=== PATIENT | male | born 1985 | race Caucasian/White ===

== ENCOUNTER 2021-03-22 10:49 | Emergency (ER) | payer MEDICAID ==
[2021-03-22] MEDS ORDERED: HYDROmorphone 1 MG/ML Syringe IM ONE (11:38)
--- NOTE | 2021-03-22 11:41 | EDM.PDOC ---
ED HPI GENERAL MEDICAL PROBLEM - General Chief Complaint: Lower Extremity Injury/Pain Stated Complaint: L ANKLE INJURY Time Seen by Provider: 03/22/21 11:24 Source of Information: Reports: Patient, RN Notes Reviewed History Limitations: Reports: No Limitations - History of Present Illness INITIAL COMMENTS - FREE TEXT/NARRATIVE: Patient is a 35-year-old male who presents to the ER for the evaluation of the left ankle injury. Patient notes that around midnight last night, he stumbled down around 4 stairs. States he is having pain into his left ankle, with a moderate amount of swelling noted. He has not been able to bear much weight on the extremity due to the pain. He is also not been icing this, or using any sort of Tylenol ibuprofen for pain management at home. Patient denies any prior injuries to this ankle and would rate his pain at a 9 out of 10. Patient denies any other sick-like symptoms, fever/chills, cough/shortness of breath, nausea/vomiting/diarrhea. Patient denies any other past medical history. He is able to wiggle his toes in all range of motion, with little difficulty, strength is slightly decreased, due to the pain. Left Ankle Pain Score (Numeric/FACES): 8 - Related Data Allergies Allergy/AdvReac Type Severity Reaction Status Date / Time No Known Allergies Allergy Verified 03/22/21 11:37 Home Meds: Home Meds . [No Known Home Meds] 03/22/21 [History] Past Medical History Neurological History: Reports: Concussion Social & Family History - Tobacco Use Years of Tobacco use: 10 Packs/Tins Daily: 0.5 - Caffeine Use Caffeine Use: Reports: Coffee - Alcohol Use Days Per Week of Alcohol Use: 2 Number of Drinks Per Day: 5 Total Drinks Per Week: 10 - Recreational Drug Use Recreational Drug Use: No Review of Systems - Review of Systems Review Of Systems: Comprehensive ROS is negative, except as noted in HPI. ED EXAM, GENERAL - Physical Exam Exam: See Below Exam Limited By: No Limitations General Appearance: Alert, WD/WN, No Apparent Distress Respiratory/Chest: No Respiratory Distress, Lungs Clear, Normal Breath Sounds, No Accessory Muscle Use, Chest Non-Tender Cardiovascular: Normal Peripheral Pulses, Regular Rate, Rhythm, No Edema Peripheral Pulses: 2+: Dorsalis Pedis (L), Dorsalis Pedis (R) Extremities: Normal Capillary Refill, Pedal Edema (2+ edema to left ankle/foot), Limited Range of Motion (left ankle / foot) Neurological: Alert, Oriented, Normal Cognition, No Motor/Sensory Deficits Psychiatric: Normal Affect, Normal Mood Skin Exam: Warm, Dry, Intact, Normal Color, No Rash Course - Vital Signs Last Recorded V/S: Last Vital Signs Temp 97.9 F 03/22/21 11:23 Pulse 96 03/22/21 11:23 Resp 16 03/22/21 11:23 BP 137/85 03/22/21 11:23 Pulse Ox 94 L 03/22/21 11:23 - Orders/Labs/Meds Orders: Active Orders 24 hr Category Date Time Status Ankle Min 3V Lt [CR] Stat Exams 03/22/21 11:31 Ordered DME for Discharge [COMM] Routine Oth 03/22/21 11:57 Ordered Meds: Medications Discontinued Medications Generic Name Dose Route Start Last Admin Trade Name Freq PRN Reason Stop Dose Admin Hydromorphone HCl 1 mg 03/22/21 11:38 03/22/21 11:42 Hydromorphone 1 Mg/Ml Syringe IM 03/22/21 11:39 1 mg ONETIME ONE Administration - Re-Assessments/Exams Free Text/Narrative Re-Assessment/Exam: 03/22/21 11:40 Patient presents in the ER for his left ankle injury. We will go ahead and get x-rays, give him 1 mg IM Dilaudid for pain management. 03/22/21 11:57 Patient's ankle x-rays have returned, there is a distal fibular fracture, slightly displaced, which also causes some disruption of the mortise joint. Films have been reviewed by myself and Dr. Summers for today's purposes we will get him in a walking boot and provided with crutches and keep him nonweightbearing. Patient will be provided with the walking boot to or stabilize the injury and prevent further injury. Departure - Departure Time of Disposition: 11:58 Disposition: Home, Self-Care 01 Condition: Good Clinical Impression: Displaced fracture of distal end of fibula Closed left fibular fracture Qualifiers: Encounter type: initial encounter Fibula location: distal Fracture morphology: other fracture Qualified Code(s): S82.832A - Other fracture of upper and lower end of left fibula, initial encounter for closed fracture - Discharge Information *PRESCRIPTION DRUG MONITORING PROGRAM REVIEWED*: No *COPY OF PRESCRIPTION DRUG MONITORING REPORT IN PATIENT RATNA: No Instructions: Tibial and Fibular Fractures Referrals: PCP,None [Primary Care Provider] - Forms: ED Department Discharge Additional Instructions: You have been evaluated in the ED for your left ankle injury. Your x-ray demonstrated a slightly displaced distal fibular fracture, that will likely need surgical management. You have been provided with a walking boot to prevent further injury and/or stabilize the injury you received today. You have been provided with crutches as well to keep you nonweightbearing. You are not to place any weight on the ankle whatsoever to make sure that you do not injure the ankle further. Please use ice as tolerated to the affected area. You may elevate the affected area to provide further relief from swelling. You may take Tylenol 500 mg or ibuprofen 600mg q6 hrs for pain relief. Please do so until you have a tolerable level of pain with activity. Do not exceed 4000mg Tylenol, Do not exceed 3200mg ibuprofen in a 24 hour time period. You were given a prescription for a strong pain medication, hydrocodone/acetaminophen 5/325, please take 1 tab every 6 hours as needed for pain not relieved by Tylenol or ibuprofen alone. Please note this does contain Tylenol in it, so do not take more than 4000 mg in a 24-hour time span. These medications can be addictive, so please take as few as possible to achieve adequate pain control. These meds can also be quite constipating, recommend that you increase your oral fluid intake and take a stool softener like MiraLAX while taking these medications. Please call Ortho for follow-up and further evaluation Dr. Nowak is our orthopedic surgeon, his office number is [phone]. Please call and set up an appointment as soon as possible for further management. Please return to ED if your symptoms should change or worsen. Sepsis Event Note (ED) - Evaluation Sepsis Screening Result: No Definite Risk - Focused Exam Vital Signs: Vital Signs Temp Pulse Resp BP Pulse Ox 03/22/21 11:23 97.9 F 96 16 137/85 94 L - My Orders Last 24 Hours: My Active Orders 03/22/21 11:31 Ankle Min 3V Lt [CR] Stat 03/22/21 11:57 DME for Discharge [COMM] Routine - Assessment/Plan Last 24 Hours: My Active Orders 03/22/21 11:31 Ankle Min 3V Lt [CR] Stat 03/22/21 11:57 DME for Discharge [COMM] Routine
[2021-03-22] MEDS ORDERED: Ketorolac 60 MG/2 ML SDV IM ONE (12:10)
[2021-03-22] MEDS ORDERED: HYDROmorphone 0.5 MG/0.5 ML Syringe IM ONE (12:10)
--- NOTE | 2021-03-22 18:55 | CR ---
Left ankle: 4 views of the left ankle were obtained. Comparison: No prior ankle studies available. Mildly displaced lateral malleolus fracture is seen. Displacement on the lateral view measures about 7-8 mm. Ankle mortise is slightly asymmetric. Small calcification is seen off the medial talus which is well-corticated and felt to represent old injury. Diffuse soft tissue swelling is noted. Impression: 1. Mildly displaced lateral malleolus fracture which causes unstable ankle mortise. 2. Other findings believed to be incidental as noted above. Diagnostic code #3
== END 2021-03-22 12:46 | disposition home or self-care (01) ==
LOC: JD.ED 10:49
DX: S82.832A Other fracture of upper and lower end of left fibula, initial encounter for closed fracture (principal); Z72.0 Tobacco use; W10.9XXA Fall (on) (from) unspecified stairs and steps, initial encounter
CPT/HCPCS: 73610; 96372; 99283; J1170; J1885

== ENCOUNTER 2021-03-24 11:10 | Emergency (ER) | payer MEDICAID ==
--- NOTE | 2021-03-24 12:50 | EDM.PDOC ---
ED HPI GENERAL MEDICAL PROBLEM - General Chief Complaint: Lower Extremity Injury/Pain Stated Complaint: SWOLLEN LT ANKLE Time Seen by Provider: 03/24/21 12:29 Source of Information: Reports: Patient History Limitations: Reports: No Limitations - History of Present Illness INITIAL COMMENTS - FREE TEXT/NARRATIVE: Presents with increasing left ankle pain. Had injury where he twisted his left ankle and sustained a Wilson C fracture of the left distal fibula. He has been in a cam walker boot crutches nonweightbearing. He has been taking hydrocodone without a lot of relief and its making him more nauseated. No chest pain or shortness of breath gets nauseated from the pain but otherwise no vomiting. No fevers no abdominal pain no knee or hip pain. Treatments LANGUAGE SPECIALIST: Reports: Other (see below) Other Treatments LANGUAGE SPECIALIST: ER on Wednesday Left Ankle Pain Score (Numeric/FACES): 9 - Related Data Allergies Allergy/AdvReac Type Severity Reaction Status Date / Time No Known Allergies Allergy Verified 03/24/21 12:22 Home Meds: Home Meds Hydrocodone/Acetaminophen [Hydrocodone-Acetamin 5-325 mg] 1 each PO Q6H PRN #20 tablet 03/22/21 [Rx] Past Medical History Neurological History: Reports: Concussion - Past Surgical History Musculoskeletal Surgical History: Reports: Other (See Below) Other Musculoskeletal Surgeries/Procedures:: displaced fibular fracture Social & Family History - Tobacco Use Tobacco Use Status *Q: Current Every Day Tobacco User Years of Tobacco use: 7 Packs/Tins Daily: 0.4 - Caffeine Use Caffeine Use: Reports: None - Recreational Drug Use Recreational Drug Use: No Review of Systems - Review of Systems Review Of Systems: See Below Constitutional: Denies: Chills, Diaphoresis, Fever Respiratory: Reports: No Symptoms Cardiovascular: Reports: No Symptoms GI/Abdominal: Reports: Nausea Musculoskeletal: Reports: Leg Pain, Foot Pain, Joint Pain, Joint Swelling, Muscle Pain Skin: Reports: No Symptoms Neurological: Denies: Numbness, Paresthesia, Tingling Psychiatric: Reports: No Symptoms ED EXAM, GENERAL - Physical Exam Exam: See Below Exam Limited By: No Limitations General Appearance: Alert, WD/WN Peripheral Pulses: 2+: Dorsalis Pedis (L) Extremities: Normal Capillary Refill, Pedal Edema, Joint Swelling, Limited Range of Motion, Other (Patient in the cam Ortho boot, does have some swelling to the ankle distally, sensation is intact, cap refill is less than 2 seconds sensation is grossly intact no proximal fibular pain no obvious calf tenderness.). No: Buck's Sign, Increased Warmth Course - Vital Signs Text/Narrative:: Patient with recent fracture, has an appointment to follow-up with the or thopedic/bottle tester on Wednesday or Wednesday. Will give him a shot of Dilaudid for more rapid control of his pain for now, we will write him for oxycodone 5 mg 1-2 every 4-6 hours as needed rest ice elevate crutches nonweightbearing return precautions given Last Recorded V/S: Last Vital Signs Temp 99.2 F 03/24/21 12:23 Pulse 88 03/24/21 12:23 Resp 16 03/24/21 12:23 BP 141/81 H 03/24/21 12:23 Pulse Ox 98 03/24/21 12:23 Departure - Departure Time of Disposition: 13:00 Disposition: Home, Self-Care 01 Condition: Good Clinical Impression: Fracture of fibula - Discharge Information Instructions: Nondisplaced Fibular Ankle Fracture Treated With Immobilization, Adult Referrals: PCP,None [Primary Care Provider] - Additional Instructions: Follow-up with podiatry/orthopedist as scheduled this week. Rest ice elevate crutches nonweightbearing continue to wear the Ortho cam splint. Stop hydrocodone, oxycodone 5 mg 1 or 2 every 4-6 hours as prescribed for pain May use Advil for less severe pain. Return sooner if any increasing pain numbness tingling bluish discoloration of the fingertips shortness of breath or chest pain. Sepsis Event Note (ED) - Evaluation Sepsis Screening Result: No Definite Risk - Focused Exam Vital Signs: Vital Signs Temp Pulse Resp BP Pulse Ox 03/24/21 12:23 99.2 F 88 16 141/81 H 98
[2021-03-24] MEDS ORDERED: HYDROmorphone 1 MG/ML Syringe IM ONE (12:51)
== END 2021-03-24 13:15 | disposition home or self-care (01) ==
LOC: JD.ED 11:10
DX: S82.832A Other fracture of upper and lower end of left fibula, initial encounter for closed fracture (principal); Z72.0 Tobacco use; X50.1XXA Overexertion from prolonged static or awkward postures, initial encounter
CPT/HCPCS: 96372; 99283; J1170

== ENCOUNTER 2021-03-27 08:55 | Day surgery (SDC) | payer MEDICAID ==
[~2021-03-27 08:55] MED LIST: Lactated Ringers 1,000 ML IV SCH; Lidocaine 1%/Sod Bicarbonate in NS 8.4% 1 ML Syringe IDERM PRN; Midazolam 1 MG/ML 2 ML SDV ONE; Propofol 200 MG/20 ML SDV ONE; Sodium Chloride 0.9% 10 ML Syringe FLUSH PRN; fentaNYL 250 MCG/5 ML SDV ONE
[2021-03-27] MEDS ORDERED: Ondansetron 4 MG/2 ML SDV ONE (09:15)
[2021-03-27] MEDS ORDERED: Dexamethasone 4 MG/ML 5 ML MDV ONE (09:15)
[2021-03-27] MEDS ORDERED: Lidocaine 1% 4 ML ONE (09:16)
[2021-03-27] MEDS ORDERED: Ketamine 500 mg/10 ML MDV ONE ×2 (09:24→11:31)
[2021-03-27] MEDS ORDERED: Lactated Ringers 0 ML ONE (09:24)
[2021-03-27] MEDS ORDERED: Bupivacaine 0.25% 10 ML SDV ONE ×2 (09:31→10:51)
[2021-03-27] MEDS ORDERED: Acetaminophen 325 MG Tab PO ONE (10:15)
[2021-03-27] MEDS ORDERED: oxyCODONE ER 10 MG TAB.ER PO ONE (10:16)
[2021-03-27] MEDS ORDERED: Pregabalin 25 MG Cap PO ONE (10:16)
[2021-03-27] MEDS ORDERED: ceFAZolin 1 GM Vial ONE (10:20)
--- NOTE | 2021-03-27 10:25 | PCM.PREANE ---
Preanesthetic Assessment - Procedure Proposed Procedure: Left Ankle ORIF lateral malleolus with syndesmosis. - Anesthesia/Transfusion/Family Hx Anesthesia History: Prior Anesthesia Without Reaction Family History of Anesthesia Reaction: No Transfusion History: No Prior Transfusion(s) Intubation History: Unknown - Review of Systems General: No Symptoms Pulmonary: No Symptoms (Smoker: 1/2 ppd times 15 years. ETOH: occasionally Heroin: 3 years.) Cardiovascular: No Symptoms (Tricuspid valve repair: 2014 ), Edema (Effected left ankle.) Gastrointestinal: No Symptoms Neurological: No Symptoms (History of concussion in the past./childhood), Numbness (left foot) Other: Reports: None (Patient rates pain 8/10. Nurse notified anesthesia of potential track hernandez on bilateral arms./History of heroin use in the past.) - Physical Assessment NPO Status Date: 03/26/21 NPO Status Time: 20:00 Vital Signs: Last Vital Signs Temp 37.2 C 03/27/21 08:45 Pulse 85 03/27/21 08:45 Resp 16 03/27/21 08:45 BP 122/80 03/27/21 08:45 Pulse Ox 95 03/27/21 08:45 Height: 1.78 m Weight: 89 kg ASA Class: 2 Mental Status: Alert & Oriented x3 Airway Class: Mallampati = 2 Dentition: Reports: Normal Dentition, Caries Thyro-Mental Finger Breadths: 3 Mouth Opening Finger Breadths: 3 ROM/Head Extension: Full Lungs: Clear to Auscultation, Normal Respiratory Effort Cardiovascular: Regular Rate, Regular Rhythm, No Murmurs - Imaging/EKG Impressions: EKG: - Allergies Allergies/Adverse Reactions: Allergies Allergy/AdvReac Type Severity Reaction Status Date / Time No Known Allergies Allergy Verified 03/26/21 14:20 - Anesthesia Plan Pre-Op Medication Ordered: Other ( ) - Acknowledgements Anesthesia Type Planned: General Anesthesia (Possible left popliteal block under US guidance for post operative pain control requested by Dr. Nowak: IF PROVIDER AVAILABLE TO PROVIDE SERVICE.) Pt an Appropriate Candidate for the Planned Anesthesia: Yes Alternatives and Risks of Anesthesia Discussed w Pt/Guardian: Yes Pt/Guardian Understands and Agrees with Anesthesia Plan: Yes PreAnesthesia Questionnaire HEENT History: Reports: None Cardiovascular History: Reports: None Respiratory History: Reports: None Gastrointestinal History: Reports: None Genitourinary History: Reports: None TORCH SOLDERER History: Reports: None Musculoskeletal History: Reports: None Neurological History: Reports: Concussion Psychiatric History: Endocrine/Metabolic History: Reports: Diabetes, Gestational Hematologic History: Reports: None Immunologic History: Reports: None Oncologic (Cancer) History: Reports: None Dermatologic History: Reports: None - Past Surgical History Head Surgeries/Procedures: Reports: None HEENT Surgical History: Reports: None Cardiovascular Surgical History: Reports: Other (See Below) Other Cardiovascular Surgeries/Procedures: tricuspid valve repair in 2014 Respiratory Surgical History: Reports: None GI Surgical History: Reports: None Female Surgical History: Reports: None Male Surgical History: Reports: None Endocrine Surgical History: Reports: None Neurological Surgical History: Reports: Laminectomy Musculoskeletal Surgical History: Reports: Other (See Below) Other Musculoskeletal Surgeries/Procedures:: displaced fibular fracture Oncologic Surgical History: Reports: None - SUBSTANCE USE Tobacco Use Status *Q: Current Every Day Tobacco User Recreational Drug Use History: No - HOME MEDS Home Medications: Home Meds Aspirin [Aspirin EC] 325 mg PO BID #84 tab 03/27/21 [Rx] Aspirin [Aspirin EC] 325 mg PO BID #84 tab 03/27/21 [Rx] oxyCODONE 5 - 10 mg PO Q4H PRN #20 tab 03/27/21 [Rx] oxyCODONE 5 mg PO ASDIRECTED PRN 03/27/21 [History] - CURRENT (IN HOUSE) MEDS Current Meds: Current Medications Acetaminophen (Acetaminophen 325 Mg Tab) 975 mg PO NOW ONE Stop: 03/27/21 10:16 Lactated Ringer's (Ringers, Lactated) 1,000 mls @ 125 mls/hr IV ASDIRECTED FELIPA Stop: 03/27/21 23:00 Lidocaine/Sodium Bicarbonate (Lidocaine 1%/Sod Bicarbonate In Ns 8.4% 1 Ml Syringe) 0.25 ml IDERM ONETIME PRN PRN Reason: Prior to IV Start Stop: 03/27/21 18:00 Oxycodone HCl (Oxycodone Er 10 Mg Tab.Er) 10 mg PO ONETIME ONE Stop: 03/27/21 10:17 Pregabalin (Pregabalin 75 Mg Cap) 50 mg PO ONETIME ONE Stop: 03/27/21 10:17 Sodium Chloride (Sodium Chloride 0.9% 10 Ml Syringe) 10 ml FLUSH ASDIRECTED PRN PRN Reason: Keep Vein Open Stop: 03/27/21 18:00 Discontinued Medications Bupivacaine HCl (Bupivacaine 0.25% 10 Ml Sdv) Confirm Administered Dose 30 ml .ROUTE .STK-MED ONE Stop: 03/27/21 09:32 Dexamethasone (Dexamethasone 4 Mg/Ml 5 Ml Mdv) Confirm Administered Dose 20 mg .ROUTE .STK-MED ONE Stop: 03/27/21 09:16 Fentanyl (Fentanyl 250 Mcg/5 Ml Sdv) Confirm Administered Dose 250 mcg .ROUTE .STK-MED ONE Stop: 03/27/21 08:53 Lidocaine HCl (Xylocaine-Mpf 1%) Confirm Administered Dose 4 mls @ as directed .ROUTE .STK-MED ONE Stop: 03/27/21 09:17 Lactated Ringer's (Ringers, Lactated) Confirm Administered Dose 1,000 mls @ as directed .ROUTE .STGesplan-MED ONE Stop: 03/27/21 09:25 Ketamine HCl (Ketamine 500 Mg/10 Ml Mdv) Confirm Administered Dose 500 mg .ROUTE .STK-MED ONE Stop: 03/27/21 09:25 Midazolam HCl (Midazolam 1 Mg/Ml 2 Ml Sdv) Confirm Administered Dose 2 mg .ROUTE .STK-MED ONE Stop: 03/27/21 08:53 Ondansetron HCl (Ondansetron 4 Mg/2 Ml Sdv) Confirm Administered Dose 4 mg .ROUTE .STK-MED ONE Stop: 03/27/21 09:16 Propofol (Propofol 200 Mg/20 Ml Sdv) Confirm Administered Dose 400 mg .ROUTE .STK-MED ONE Stop: 03/27/21 08:53
[2021-03-27] MEDS ORDERED: Lidocaine 1% 30 ML SDV ONE (10:52)
[2021-03-27] MEDS ORDERED: HYDROmorphone 0.5 MG/0.5 ML Syringe ONE ×6 (11:31→12:59)
--- NOTE | 2021-03-27 11:36 | PCM.SN.2 ---
- Free Text/Narrative Note: Anesthesia Note: Time out: 1100 Start: 1100 Stop: 1106 Procedure: Left Ankle Block for post operative pain control requested by Dr. Nowak. Chart reviewed, allergies noted, risk/benefits discussed with patient, and consent obtained. Patient placed on O2 at 2lpm nasal cannula. Monitors/alarms on, and patient positioned supine for ankle block placement. IV sedation given with versed 2mg, and fentanyl 100mcg prior to procedure. Total of 10mls: 50/50 mixture of (1%lidocaine/0.25% marcaine) Deep peroneal nerve, superficial peroneal, saphenous nerve, posterior tibial, and sural nerve all blocked via field block with negative aspiration noted with each injection. Patient tolerated procedure well. Patient stated prior to going back to the OR that ankle pain was improving. Initial pain = 8/10 Thank you! Layla Abreu CRNA
[2021-03-27] MEDS ORDERED: Ketorolac 30 MG/ML SDV ONE (12:01)
--- NOTE | 2021-03-27 12:10 | PCM.EKG ---
#1 Interpretation EKG Date: 03/27/21 Time: 10:53 Rhythm: NSR Rate (Beats/Min): 73 [place]: Normal P-Wave: Present ST-T: Other (Diffuse early repolarization pattern) QT: Prolonged (QTC is minimally prolonged) EKG Interpretation Comments: Abnormal ECG
--- NOTE | 2021-03-27 13:05 | CR ---
Left ankle: Multiple fluoroscopic spot views were obtained of the left ankle. Study was obtained during operative fixation. Comparison: Prior left ankle study of 03/22/21. Findings: Study shows placement of plate and screws within the distal fibula as well as an 2 screws affixing the distal fibula to the tibia. Fluoroscopy time is given as 36.1 seconds. Impression: 1. Reduction and fixation of previous fibular fracture. Diagnostic code #2
[2021-03-27] MEDS ORDERED: Ondansetron 4 MG/2 ML SDV IVPUSH PRN (13:12)
[2021-03-27] MEDS ORDERED: fentaNYL 100 MCG/2 ML SDV IVPUSH PRN (13:12)
--- NOTE | 2021-03-27 13:13 | PCM.POSTAN ---
POST ANESTHESIA ASSESSMENT - MENTAL STATUS Mental Status: Alert - VITAL SIGNS Vital Signs: Last Vital Signs Temp 36.3 C 03/27/21 13:01 Pulse 98 03/27/21 13:01 Resp 16 03/27/21 13:01 BP 129/109 H 03/27/21 13:01 Pulse Ox 95 03/27/21 13:01 - RESPIRATORY Respiratory Status: Respiratory Rate WNL, Airway Patent, O2 Saturation Stable, Supplemental Oxygen - CARDIOVASCULAR CV Status: Pulse Rate WNL, Blood Pressure Stable - GASTROINTESTINAL GI Status: No Symptoms - PAIN Pain Score: 5 (being treated by RN ) - POST OP HYDRATION Hydration Status: Adequate & Stable
[2021-03-27] MEDS ORDERED: oxyCODONE 5 MG Tab PO PRN (13:16)
[2021-03-27] MEDS: HYDROmorphone 0.5 MG/0.5 ML Syringe IVPUSH PRN ×2 (13:20→13:37)
--- NOTE | 2021-03-27 14:05 | PCM48HPAN ---
Post Anesthesia Note - EVALUATION WITHIN 48HRS OF ANESTHETIC Vital Signs in Normal Range: Yes Patient Participated in Evaluation: Yes Respiratory Function Stable: Yes Airway Patent: Yes Cardiovascular Function Stable: Yes Hydration Status Stable: Yes Pain Control Satisfactory: Yes Nausea and Vomiting Control Satisfactory: Yes Mental Status Recovered: Yes Vital Signs: Last Vital Signs Temp 36.9 C 03/27/21 14:00 Pulse 96 03/27/21 14:00 Resp 19 03/27/21 14:00 BP 138/96 H 03/27/21 14:00 Pulse Ox 93 L 03/27/21 14:00
--- NOTE | 2021-04-04 07:39 | PCM.OPNOTE ---
- General Post-Op/Procedure Note Date of Surgery/Procedure: 03/27/21 Operative Procedure(s): open reduction internal fixation left ankle lateral malleolus and syndesmosis with deltoid ligament primary repair Pre Op Diagnosis: left ankle bimalleolar equivalent fracture Post-Op Diagnosis: Same Anesthesia Technique: General LMA, Regional Block Primary Surgeon: Lamont Nowak Anesthesia Provider: Jaclyn Roger Quality Assurance Supervisor: Nazanin Seo EBL in mLs: 10 Complications: None Condition: Good
--- NOTE | 2021-04-07 07:43 | OR ---
DATE OF OPERATION: 03/27/2021 SURGEON: Lamont Nowak MD OPERATION PERFORMED: Open reduction and internal fixation of left ankle lateral malleolus syndesmosis with deltoid ligament primary repair. PREOPERATIVE DIAGNOSIS: Left ankle bimalleolar equivalent fracture. POSTOPERATIVE DIAGNOSIS: Left ankle bimalleolar equivalent fracture. ANESTHESIA: General LMA with regional block. ANESTHESIA PROVIDER: Jaclyn Roger. TUMBLER PLATER: Nazanin Seo PA-C ESTIMATED BLOOD LOSS: 10 mL. COMPLICATIONS: None. CONDITION: Stable. DESCRIPTION OF PROCEDURE: The patient was identified in the preoperative holding area. Proper site was marked and identified by the surgeon. The patient was taken back to the operating theater where after adequate anesthesia, the patient had a nonsterile tourniquet applied to the left lower extremity. Left lower extremity was then sterilely prepped and draped in the usual sterile fashion. OR time-out was performed. The patient received 2 g of IV Ancef. At this time, left lower extremity was exsanguinated. Tourniquet was insufflated to 250 mmHg. Standard lateral incision was made. This was taken down to the fibula where the fibular fracture was identified. Curette and rongeur were used to remove fracture hematoma and soft tissue. At this time, mpeut-[id number] reduction clamp was used for an intact anatomic reduction, and a 3.5 lag screw was then placed in lag by technique. It was found to have adequate fixation. At this time, a one-third semi-tubular plate was placed laterally and was found to have good positioning. At this time, cortical screws were placed both proximally and distally to the fracture site to fix it. The patient then had 2 syndesmotic screws placed across in tricortical fashion. At this time though, the medial clear space was still widened. The patient had increased talar tilt indicative of probable deltoid ligament entrapped in the medial clear space. At this time, a medial incision was made. This was taken down to the deltoid ligament. It was found to be entrapped into the medial clear space with complete tearing. At this time, it was removed from the medial clear space, and I was able to do a primary repair using 0 Vicryl to repair the deltoid ligament from its midsubstance tear. Again, the syndesmotic screws were placed across, compression was applied across the syndesmosis with a [id number] reduction clamp, and the screws were tightened. It was found to have anatomic reduction in the medial clear space, and there was no increased talar tilt on stress view. At this time, adequate saline was irrigated through all wounds, 2-0 Vicryl was used subcutaneously. [place] were used for closure of the skin. The patient was placed in a sterile soft dressing and a posterior slab splint and sent to the PACU in stable condition. DARLENE /[id number]
== END 2021-03-27 15:05 | disposition home or self-care (01) ==
LOC: JD.SDS 08:55
PROVIDERS: ATTEND Orthopaedic Surgery
DX: S82.842A Displaced bimalleolar fracture of left lower leg, initial encounter for closed fracture (principal); S93.422A Sprain of deltoid ligament of left ankle, initial encounter; F17.210 Nicotine dependence, cigarettes, uncomplicated; Z79.82 Long term (current) use of aspirin; X50.1XXA Overexertion from prolonged static or awkward postures, initial encounter
CPT/HCPCS: 27814; 27829; 76000; 93005; A9270; C1713; C1776; J0690; J1100; J1170; J1885; J2250; J2405; J2704; J3010; J3490; J7120; 01480; 64450

== ENCOUNTER 2021-03-30 15:38 | Emergency (ER) | payer MEDICAID ==
[2021-03-30] MEDS ORDERED: Promethazine 25 MG/ML SDV IM ONE (15:58)
[2021-03-30] MEDS ORDERED: HYDROmorphone 1 MG/ML Syringe IM ONE (15:58)
--- NOTE | 2021-03-30 15:58 | EDM.PDOC ---
ED HPI GENERAL MEDICAL PROBLEM - General Chief Complaint: Lower Extremity Injury/Pain Stated Complaint: LT ANKLE PAIN/POST SURGERY X3 Time Seen by Provider: 03/30/21 15:51 Source of Information: Reports: Patient History Limitations: Reports: No Limitations - History of Present Illness INITIAL COMMENTS - FREE TEXT/NARRATIVE: 35-year-old male presents to the ED primarily for pain management. He is 3 days postop repair of the lateral and medial left ankle. He suffered initial injury on March 22 with a defined distal lateral malleolus fracture and slight widening of the medial joint on the mortise view. Surgery was done 3 days ago and in fact he did require both sides of the ankle to be repaired. He is immobilized in a posterior Ortho-Glass splint. He used up his 20 tablets of Percocet 5 325 mg tablets over the last 3 days. He states he has constant throbbing pain in the ankle more so on the medial aspect and the outside aspect. Patient advised at length that he must elevate the foot above the level of his heart as much as possible for the next several days until swelling goes down. Onset Date: 03/22/21 (Initial injury with fracture of the lateral malleolus distally occurred March 22. Surgery was performed March 27) Duration: Day(s):, Constant Location: Reports: Lower Extremity, Left (Left bilateral ankle pain medial) Quality: Reports: Ache ( worse than lateral pain.), Throbbing, Other (Pulsating) Severity: Moderate (8 out of 10) Improves with: Reports: None Worsens with: Reports: None Context: Reports: Trauma, Other (Postoperative pain after repair of lateral distal malleolus and surgical repair of the deltoid ligament or medial ligament of the ankle as well with pins.). 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: Other (see below) (Percocet 5/325 mg strength.) Left Ankle Pain Score (Numeric/FACES): 7 - Related Data Allergies Allergy/AdvReac Type Severity Reaction Status Date / Time No Known Allergies Allergy Verified 03/30/21 15:47 Home Meds: Home Meds Aspirin [Aspirin EC] 325 mg PO BID #84 tab 03/27/21 [Rx] oxyCODONE HCl [Roxicodone] 15 mg PO Q6H PRN #18 tablet 03/30/21 [Rx] Past Medical History HEENT History: Reports: None Cardiovascular History: Reports: None Respiratory History: Reports: None Gastrointestinal History: Reports: None Genitourinary History: Reports: None 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 Musculoskeletal History: Reports: None Neurological History: Reports: Concussion Endocrine/Metabolic History: Reports: Diabetes, Gestational Hematologic History: Reports: None Immunologic History: Reports: None Oncologic (Cancer) History: Reports: None Dermatologic History: Reports: None - Past Surgical History Cardiovascular Surgical History: Reports: Other (See Below) Other Cardiovascular Surgeries/Procedures: tricuspid valve repair in 2014 Neurological Surgical History: Reports: Laminectomy Musculoskeletal Surgical History: Reports: Other (See Below) Other Musculoskeletal Surgeries/Procedures:: displaced left fibular fracture Social & Family History - Tobacco Use Tobacco Use Status *Q: Current Every Day Tobacco User Years of Tobacco use: 10 Packs/Tins Daily: 0.5 - Caffeine Use Caffeine Use: Reports: None - Recreational Drug Use Recreational Drug Use: No - Living Situation & Occupation Living situation: Reports: Single Occupation: Unemployed Review of Systems - Review of Systems Review Of Systems: See Below Constitutional: Reports: Other (Patient states he is tired from not being able to sleep adequately) Eyes: Reports: No Symptoms Ears: Reports: No Symptoms Nose: Reports: No Symptoms Mouth/Throat: Reports: No Symptoms Respiratory: Reports: No Symptoms Cardiovascular: Reports: No Symptoms GI/Abdominal: Reports: No Symptoms Genitourinary: Reports: No Symptoms Musculoskeletal: Reports: Back Pain, Joint Pain (Current pain is in his left ankle.) Skin: Reports: No Symptoms Neurological: Reports: No Symptoms Psychiatric: Reports: No Symptoms ED EXAM, GENERAL - Physical Exam Exam: See Below Exam Limited By: No Limitations General Appearance: Alert, WD/WN, No Apparent Distress, Other (Temperature is 36.2. Heart rate at the bedside was 120/min. Respiratory to 16 with O2 sats of 97% room air. BP mildly elevated 145/96. This is presumably due to pain response.) Eye Exam: Bilateral Eye: Normal Inspection (No blepharal pallor or scleral icterus.) Respiratory/Chest: No Respiratory Distress, Lungs Clear, Normal Breath Sounds, No Accessory Muscle Use Cardiovascular: Normal Peripheral Pulses, Regular Rate, Rhythm, No Murmur, No Rub, Tachycardia (Mild tachycardia at the bedside.) Peripheral Pulses: 3+: Carotid (L), Carotid (R) Extremities: Other (Left lower extremity is immobilized in a posterior Ortho- Glass splint and Graeme wrap in place. Toes are pink and good capillary return appreciated to the great toenail.) Neurological: Alert, Oriented, CN II-XII Intact, Normal Cognition Psychiatric: Normal Affect, Normal Mood Skin Exam: Warm, Dry, Intact, Normal Color Course - Vital Signs Last Recorded V/S: Last Vital Signs Temp 36.2 C 03/30/21 15:44 Pulse 119 H 03/30/21 15:44 Resp 16 03/30/21 15:44 BP 145/96 H 03/30/21 15:44 Pulse Ox 97 03/30/21 15:44 - Orders/Labs/Meds Meds: Medications Discontinued Medications Generic Name Dose Route Start Last Admin Trade Name Parvezq PRN Reason Stop Dose Admin Hydromorphone HCl 1 mg 03/30/21 15:58 03/30/21 16:04 Hydromorphone 1 Mg/Ml Syringe IM 03/30/21 15:59 1 mg ONETIME ONE Administration Promethazine HCl 25 mg 03/30/21 15:58 03/30/21 16:03 Promethazine 25 Mg/Ml Sdv IM 03/30/21 15:59 25 mg ONETIME ONE Administration - Radiology Interpretation Free Text/Narrative:: 35-year-old male presents to the ED for evaluation of left ankle pain. Patient suffered initial fracture of the distal lateral fibula on March 22. There was mild widening of the mortise view medially suspicious for deltoid ligament rupture at that time. Patient underwent surgery by Dr. Nowak orthopedic surgeon on March 27 with repair of both the lateral and medial aspect of the ankle. Patient states he is used up all the 20 oxycodone tablets that he had for pain relief. Currently rates the pain as a 7 out of 10 in his left ankle more so medially than laterally. Instructed that he must keep it elevated ideally above the level of his heart on pillows while lying down on the couch. The drugstore is closed at this time. This is a holiday weekend. Therefore given IM injection of Dilaudid 1 mg and Phenergan 25 mg in the ED. Prescription written for Roxicodone tablets as he has problems tolerating acetaminophen. We use the 50 mg tablet every 6 hours as needed for pain relief. 16 tablets provided. Follow-up with Dr. Nowak as planned. After the next 3 days the pain should imp rove in your ankle to the point that you can tolerate Motrin 600 mg every 6 hours to reduce pain and inflammation. Departure - Departure Time of Disposition: 16:23 Disposition: Home, Self-Care 01 Condition: Fair Clinical Impression: Postoperative pain of extremity - Discharge Information *PRESCRIPTION DRUG MONITORING PROGRAM REVIEWED*: Not Applicable *COPY OF PRESCRIPTION DRUG MONITORING REPORT IN PATIENT RATNA: Not Applicable Prescriptions: oxyCODONE HCl [Roxicodone] 15 mg PO Q6H PRN #18 tablet PRN Reason: post op Lt ankle surgery Referrals: Lamont Nowak MD [Primary Care Provider] - Forms: ED Department Discharge Additional Instructions: Evaluation in the emergency room today in regards to severe pain left ankle at the site of surgical repair both outside her lateral and medial or inside ankle 3 days ago. Initial injury was a fracture to the distal lateral malleolus or fibula with widened ankle mortise suggesting deltoid ligament tear. This was confirmed at the time of surgery with repair of both sides of your ankle joint. You remain immobilized in a Ortho-Glass posterior splint. It is important to elevate your foot is much as possible ideally above the level of your heart if you are laying on the couch with a couple of pillows etc. Drugstores are closed at this time. You were therefore given an IM injection of Dilaudid with Phenergan in the emergency department for pain relief. You will be able to you purchase a few Percocet tablets from the [employer] machine to get you through the night. 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 It is the only drugs that will be open for those few hours. Sepsis Event Note (ED) - Evaluation Sepsis Screening Result: No Definite Risk - Focused Exam Vital Signs: Vital Signs Temp Pulse Resp BP Pulse Ox 03/30/21 15:44 36.2 C 119 H 16 145/96 H 97
== END 2021-03-30 16:30 | disposition home or self-care (01) ==
LOC: JD.ED 15:38
DX: G89.18 Other acute postprocedural pain (principal); M25.572 Pain in left ankle and joints of left foot
CPT/HCPCS: 96372; 99283; J1170; J2550

== ENCOUNTER 2021-04-19 11:34 | Emergency (ER) | payer MEDICAID ==
[2021-04-19] MEDS ORDERED: HYDROmorphone 1 MG/ML Syringe IM ONE (11:47)
--- NOTE | 2021-04-19 11:58 | EDM.PDOC ---
ED HPI GENERAL MEDICAL PROBLEM - General Chief Complaint: Lower Extremity Injury/Pain Stated Complaint: L FOOT PAIN Time Seen by Provider: 04/19/21 11:44 Source of Information: Reports: Patient, Old Records, RN Notes Reviewed History Limitations: Reports: No Limitations - History of Present Illness INITIAL COMMENTS - FREE TEXT/NARRATIVE: Patient is a 35-year-old male who presents to the ER for the evaluation of his left ankle injury. Patient has had recent surgery performed by Dr. Dacosta on his left ankle, and states that he has been staying nonweightbearing as he has been told to do however he was trying to go up some stairs, and then kind of tripped up the stairs 2 days ago, and then he kind of fell over his crutches as well. States he is having some pain in his left lateral ankle, he can move his foot with little difficulty, and has no numbness tingling distal to the injury. The incision sites appear to be healing well, there are no drainage or redness associated around the incision sites. Pulses are palpable. Patient denies any other sick-like symptoms, fever/chills, cough/shortness of breath, nausea/vomiting/diarrhea. Left Ankle Pain Score (Numeric/FACES): 5 - Related Data Allergies Allergy/AdvReac Type Severity Reaction Status Date / Time No Known Allergies Allergy Verified 04/19/21 11:44 Home Meds: Home Meds Cyclobenzaprine [Flexeril] 10 mg PO BID PRN 04/19/21 [History] oxyCODONE HCl [Oxycodone HCL] 1 tab PO Q6H PRN #20 tablet 04/19/21 [Rx] Past Medical History Neurological History: Reports: Concussion - Past Surgical History Cardiovascular Surgical History: Reports: Other (See Below) Other Cardiovascular Surgeries/Procedures: tricuspid valve repair in 2014 Neurological Surgical History: Reports: Laminectomy Musculoskeletal Surgical History: Reports: Other (See Below) Other Musculoskeletal Surgeries/Procedures:: displaced left fibular fracture, left ankle surgery 03/27/2021 Social & Family History - Tobacco Use Tobacco Use Status *Q: Current Every Day Tobacco User Years of Tobacco use: 5 Packs/Tins Daily: 0.1 - Caffeine Use Caffeine Use: Reports: None - Recreational Drug Use Recreational Drug Use: No - Living Situation & Occupation Living situation: Reports: Single Occupation: Unemployed Review of Systems - Review of Systems Review Of Systems: Comprehensive ROS is negative, except as noted in HPI. ED EXAM, GENERAL - Physical Exam Exam: See Below Exam Limited By: No Limitations General Appearance: Alert, WD/WN, No Apparent Distress Respiratory/Chest: No Respiratory Distress, Lungs Clear, Normal Breath Sounds, No Accessory Muscle Use, Chest Non-Tender Cardiovascular: Normal Peripheral Pulses, Regular Rate, Rhythm, No Edema Peripheral Pulses: 2+: Radial (L), Radial (R) Extremities: Normal Inspection (surgical wounds healing well to left ankle), Normal Capillary Refill Neurological: Alert, Oriented, Normal Cognition, No Motor/Sensory Deficits Psychiatric: Normal Affect, Normal Mood Skin Exam: Warm, Dry, Intact, Normal Color, No Rash Course - Vital Signs Last Recorded V/S: Last Vital Signs Temp 98.0 F 04/19/21 11:43 Pulse 116 H 04/19/21 11:43 Resp 18 04/19/21 11:43 BP 126/97 H 04/19/21 11:43 Pulse Ox 99 04/19/21 11:43 - Orders/Labs/Meds Orders: Active Orders 24 hr Category Date Time Status Ankle Min 3V Lt [CR] Stat Exams 04/19/21 11:52 Ordered Meds: Medications Discontinued Medications Generic Name Dose Route Start Last Admin Trade Name Parvezq PRN Reason Stop Dose Admin Hydromorphone HCl 1 mg 04/19/21 11:47 04/19/21 11:55 Hydromorphone 1 Mg/Ml Syringe IM 04/19/21 11:48 1 mg ONETIME ONE Administration - Re-Assessments/Exams Free Text/Narrative Re-Assessment/Exam: 04/19/21 12:03 Patient presents to the ER for his left ankle pain. We will go ahead and get x- rays, as he states he has reinjured the site of surgery, to rule out any obvious fracture abnormalities, patient will be given 1 mg IM injection of Dilaudid and we will give him some tablets of the 10 mg oxycodone tablets for pain management. States that he thinks he has a follow-up with Dr. Nowak sometime this week. 04/19/21 12:39 X-rays have been obtained and reviewed by myself and Dr. Rick, there appears to be no obvious acute fracture or other injury at the surgical site. Departure - Departure Time of Disposition: 12:40 Disposition: Home, Self-Care 01 Condition: Good Clinical Impression: Left ankle pain Qualifiers: Chronicity: acute Qualified Code(s): M25.572 - Pain in left ankle and joints of left foot - Discharge Information *PRESCRIPTION DRUG MONITORING PROGRAM REVIEWED*: Yes *COPY OF PRESCRIPTION DRUG MONITORING REPORT IN PATIENT RATNA: No Prescriptions: oxyCODONE HCl [Oxycodone HCL] 1 tab PO Q6H PRN #20 tablet PRN Reason: Pain Instructions: Joint Pain, [id number] Referrals: PCP,None [Primary Care Provider] - Forms: ED Department Discharge Additional Instructions: You have been evaluated in the ED for your left ankle pain/injury. Your x-ray demonstrated no acute fracture or other disruption of surgical plates. Please use ice as tolerated to the affected area. You may elevate the affected area to provide further relief from swelling. Please keep off of the foot, to maintain nonweightbearing status. You may take Tylenol 500 mg or ibuprofen 600mg q6 hrs for pain relief. Please do so until you have a tolerable level of pain with activity. Do not exceed 4000mg Tylenol, Do not exceed 3200mg ibuprofen in a 24 hour time period. You were given a prescription for a strong pain medication, oxycodone 10 mg, please take 1 tab every 6 hours as needed for pain not relieved by Tylenol or ibuprofen alone. Please note this does contain Tylenol in it, so do not take more than 4000 mg in a 24-hour time span. These medications can be addictive, so please take as few as possible to achieve adequate pain control. These meds can also be quite constipating, recommend that you increase your oral fluid intake and take a stool softener like MiraLAX while taking these medications. This medication was electronically sent to the [facility] located in the [place]. Please keep your next appoint with orthopedics for ongoing management. Please return to ED if your symptoms should change or worsen. Sepsis Event Note (ED) - Evaluation Sepsis Screening Result: No Definite Risk - Focused Exam Vital Signs: Vital Signs Temp Pulse Resp BP Pulse Ox 04/19/21 11:43 98.0 F 116 H 18 126/97 H 99 - My Orders Last 24 Hours: My Active Orders 04/19/21 11:52 Ankle Min 3V Lt [CR] Stat - Assessment/Plan Last 24 Hours: My Active Orders 04/19/21 11:52 Ankle Min 3V Lt [CR] Stat
--- NOTE | 2021-04-20 09:11 | CR ---
Left ankle: 3 views left ankle were obtained. Comparison: Prior ankle study of 03/22/21 and operative exam of 03/27/21. Prior fibular fracture is noted which is affixed with plate and screws. This is similar to prior exam. Soft tissue calcification is seen medially which is well-defined and is felt to be old. Mild soft tissue swelling is seen. No additional fracture or other abnormality is appreciated. Impression: 1. Lateral malleolus fracture affixed with orthopedic hardware. 2. Mild soft tissue swelling and other findings. 3. No other acute abnormality is appreciated within the osseous structures. Diagnostic code #2
== END 2021-04-19 13:10 | disposition home or self-care (01) ==
LOC: JD.ED 11:34
DX: M25.572 Pain in left ankle and joints of left foot (principal); Z72.0 Tobacco use
CPT/HCPCS: 73610; 96372; 99283; J1170

== ENCOUNTER 2021-04-22 21:47 | Emergency (ER) | payer MEDICAID ==
--- NOTE | 2021-04-22 22:30 | EDM.PDOC ---
ED HPI GENERAL MEDICAL PROBLEM - General Chief Complaint: Lower Extremity Injury/Pain Stated Complaint: LEG PAIN Time Seen by Provider: 04/22/21 22:06 Source of Information: Reports: Patient, Old Records (ED visits 03/22, 03/24, 03/30, 04/16 + OR note 03/27) History Limitations: Reports: No Limitations - History of Present Illness INITIAL COMMENTS - FREE TEXT/NARRATIVE: Medical records indicate that the patient was seen in this ED on 03/22/2021 for left ankle pain and swelling after falling down some steps. X-rays revealed a distal fibular fracture. He was treated with IV Dilaudid. He was placed into a CAM walker boot and fitted for crutches before being discharged home with a prescription for 20 tablets of [place] 5/325. He was referred to the Orthopedic Surgeon. The patient then returned to this ED on 03/24/2021, complaining of continued pain, inadequately treated by [place]. He was given IV Dilaudid and discharged home with a prescription for 12 tablets of oxycodone 5 mg. He then followed up with the Orthopedic Surgeon on 03/25/2021, and was prescribed 40 tablets of [place] 5/325. He then underwent an ORIF to his left ankle on 03/27/2021, being discharged home the same day with a prescription for 20 tablets of oxycodone 5 mg. He then returned to this ED on 03/30/2021, stating that he was out of pain medication. He was again treated with IV Dilaudid and discharged with an [facility] prescription for 10 tablets of Percocet 5/325 as well as a second prescription for 18 tablets of oxycodone 15 mg. He then followed up at his Orthopedic Surgeon's office on 04/02/2021. He states that he was placed into a CAM walker boot, but at the same time instructed to not bear weight on his left lower extremity. He was prescribed 20 tablets of oxycodone 5 mg. He then received an additional prescription of 20 tablets of oxycodone 5 mg on 04/04/2021 from his Orthopedic Surgeon's office. He then received a prescription for 4 tablets of oxycodone 5 mg on 04/07/2021 from his Orthopedic Surgeon's office. He then received a prescription for 10 tablets of tramadol 50 mg on 04/15/2021 from his Orthopedic Surgeon's office. He then returned to this ED 3 days ago, on 04/19/2021, stating that he had fallen and reinjured his left ankle. He was given IV Dilaudid. X-rays showed no new injury. He was discharged with a prescription for 20 tablets of oxycodone 10 mg. Review of the [place] [employer] indicates that the patient was initially prescribed buprenorphine on 08/18/2019, with his most recent prescription on 01/21/2021. He has also been prescribed Suboxone. This indicates a previous diagnosis of opiate addiction. The patient now returns to the ED stating that he is concerned that his left ankle appears to be more swollen than usual, and that he is out of pain medication. He states that he did not contact the office of his Orthopedic Surgeon, but that he has an appointment for this coming 04/25/2021. Here in the ED, the patient's initial BP is found to be mildly elevated at 140/91, with mild tachycardia 113 bpm. He is afebrile, saturating 95% on room air. He appears to be relatively comfortable, in no acute distress. The patient is ambulating with a CAM walker boot and a single crutch, bearing weight on his left lower extremity. Other than left ankle pain and swelling, the patient denies having a recent fever, chills, sore throat, ear pain, nasal or sinus congestion, cough, dyspnea, chest pain, palpitations, nausea, vomiting, constipation, diarrhea, abdominal pain, urinary symptoms, recent weight gain or weight loss, recent bloody bowel movements or black bowel movements, headaches, or rashes. The patient does not have a PCP. His Orthopedic Surgeon is Dr. Lamont Nowak. The patient states that he has an appointment to see Dr. Nowak on 04/25/2021. Left Lower Leg Pain Score (Numeric/FACES): 7 - Related Data Allergies Allergy/AdvReac Type Severity Reaction Status Date / Time No Known Allergies Allergy Verified 04/22/21 22:01 Home Meds: Home Meds . [No Known Home Meds] 04/22/21 [History] Past Medical History Musculoskeletal History: Reports: Fracture (left distal fibula 03/22/2021) Psychiatric History: Reports: Addiction (opiates) - Past Surgical History Cardiovascular Surgical History: Reports: Other (See Below) (Tricuspid valve repair 2014) Neurological Surgical History: Reports: Laminectomy Musculoskeletal Surgical History: Reports: ORIF (left ankle, 03/27/2021) Social & Family History - Tobacco Use Tobacco Use Status *Q: Current Every Day Tobacco User Years of Tobacco use: 5 Packs/Tins Daily: 0.5 Used Tobacco, but Quit: No - Caffeine Use Caffeine Use: Reports: Soda - Recreational Drug Use Recreational Drug Use: Yes Drug Use in Last 12 Months: Yes Recreational Drug Type: Reports: Other (see below) (Prescrption opiates) - Living Situation & Occupation Living situation: Reports: Single Occupation: Unemployed Review of Systems - Review of Systems Review Of Systems: Comprehensive ROS is negative, except as noted in HPI. ED EXAM, GENERAL - Physical Exam Exam: See Below Exam Limited By: No Limitations General Appearance: Alert, WD/WN, No Apparent Distress Extremities: Other (Minimal swelling to the left ankle, when compared to the right. No discoloration. Surgical wounds over the lateral and medial malleoli appear to be healing nicely, with no suggestion of an infection. Neurovascular status to the left lower extremity is intact.) Course - Vital Signs Last Recorded V/S: Last Vital Signs Temp 36.7 C 04/22/21 21:57 Pulse 113 H 04/22/21 21:57 Resp 20 04/22/21 21:57 BP 140/91 H 04/22/21 21:57 Pulse Ox 95 04/22/21 21:57 - Re-Assessments/Exams Free Text/Narrative Re-Assessment/Exam: 04/22/21 22:26 As above, the patient broke his left ankle on 03/22/2021, underwent ORIF on 03/27/2021, and has been seen in this ED and by his orthopedic surgeon on numerous occasions, receiving multiple prescriptions for opioids. The [place] [employer] indicates prior prescriptions for buprenorphine and Suboxone, indicating a previous diagnosis of opiate addiction. He has now returned to the ED requesting pain medication. He acknowledged that he is bearing weight on his left lower extremity. AFTER I explained to him that I cannot prescribe any additional opiates, he then asked me 2 additional times to prescribe him an opiate. There is no question but that the patient is drug-seeking. I explained to the patient that at this point if he needs an opioid pain reliever, he will need to have them prescribed by a single prescriber, in this case, Dr. Nowak. I have recommended that he ice and elevate his left ankle as much as possible, and stop bearing weight on it. He should contact the office of Dr. Nowak in the morning, to see if he would be willing to prescribe additional opiates. He has an appointment to see Dr. Nowak this coming 04/25/2021. Departure - Departure Time of Disposition: 22:28 Disposition: Eloped 07 Condition: Good Clinical Impression: Postoperative pain of extremity - Discharge Information *PRESCRIPTION DRUG MONITORING PROGRAM REVIEWED*: Not Applicable *COPY OF PRESCRIPTION DRUG MONITORING REPORT IN PATIENT RATNA: Not Applicable Referrals: Lamont Nowak MD [Physician] - Forms: ED Department Discharge Additional Instructions: You were seen in the emergency room for continued left ankle pain after fracturing it on 03/22/2021, and undergoing operative repair on 03/27/2021. We recommend that you ice and elevate your left ankle as much as possible. We recommend you take [id number] ibuprofen, 3 to 4 tablets (600 to 800 mg) up to every 8 hours, with food, as needed for discomfort. We recommend that you STOP BEARING WEIGHT on your left ankle. Use both of your crutches! As discussed, if your pain is severe enough to require an opiate, it needs to be prescribed by a single prescriber, in this case, Dr. Nowak. Contact his office in the morning to see if you would be willing to prescribe you additional opiates, and follow-up with him at your previously scheduled appointment this coming 04/25/2021. If any other problems, please do not hesitate to return to the ER. Sepsis Event Note (ED) - Evaluation Sepsis Screening Result: No Definite Risk
== END 2021-04-22 22:36 | disposition left against medical advice (07) ==
LOC: JD.ED 21:47
DX: G89.18 Other acute postprocedural pain (principal); M25.572 Pain in left ankle and joints of left foot; M79.89 Other specified soft tissue disorders; Z72.0 Tobacco use
CPT/HCPCS: 99282; 99283

== ENCOUNTER 2021-07-07 11:42 | Emergency (ER) | payer MEDICAID ==
--- NOTE | 2021-07-07 12:52 | EDM.PDOCBH ---
ED HPI GENERAL MEDICAL PROBLEM - General Chief Complaint: Behavioral/Psych Stated Complaint: ANXIETY Time Seen by Provider: 07/07/21 12:08 Source of Information: Reports: Patient History Limitations: Reports: No Limitations - History of Present Illness INITIAL COMMENTS - FREE TEXT/NARRATIVE: 35-year-old male presents the emergency department with complaints of increased anxiety. Patient states that his primary care provider prescribed him Xanax to be taken 3 times daily as needed however his prescription has run out. He plans on going back to [place] this weekend however he was unable to and does have an appointment scheduled for the of this month to see his primary care provider. He denies any suicidal thoughts or homicidal thoughts. He denies excessive alcohol intake. States he is otherwise healthy and has not had any other symptoms. - Related Data Allergies Allergy/AdvReac Type Severity Reaction Status Date / Time No Known Allergies Allergy Verified 04/22/21 22:01 Home Meds: Home Meds ALPRAZolam [Xanax] 1 mg PO TID PRN 07/07/21 [History] ALPRAZolam [Xanax] 1 mg PO TID PRN #15 tablet 07/07/21 [Rx] Escitalopram [Lexapro] 10 mg PO DAILY #30 tab 07/07/21 [Rx] Past Medical History HEENT History: Reports: None Cardiovascular History: Reports: None Respiratory History: Reports: None Gastrointestinal History: Reports: None Genitourinary History: Reports: None Musculoskeletal History: Reports: Fracture Neurological History: Reports: Concussion Psychiatric History: Reports: Addiction, Anxiety Hematologic History: Reports: None Immunologic History: Reports: None Oncologic (Cancer) History: Reports: None Dermatologic History: Reports: None - Infectious Disease History Infectious Disease History: Reports: None - Past Surgical History Head Surgeries/Procedures: Reports: None HEENT Surgical History: Reports: None Cardiovascular Surgical History: Reports: Other (See Below) Other Cardiovascular Surgeries/Procedures: tricuspid valve repair in 2015 Respiratory Surgical History: Reports: None GI Surgical History: Reports: None Male Surgical History: Reports: None Endocrine Surgical History: Reports: None Neurological Surgical History: Reports: Laminectomy Musculoskeletal Surgical History: Reports: ORIF Other Musculoskeletal Surgeries/Procedures:: displaced left fibular fracture, left ankle surgery 03/27/2021 Oncologic Surgical History: Reports: None Social & Family History - Family History Family Medical History: No Pertinent Family History - Tobacco Use Tobacco Use Status *Q: Former Tobacco User Used Tobacco, but Quit: Yes Month/Year Tobacco Last Used: month ago - Caffeine Use Caffeine Use: Reports: Coffee, Soda, Tea - Recreational Drug Use Recreational Drug Use: No - Living Situation & Occupation Living situation: Reports: Single Occupation: Unemployed ED ROS GENERAL - Review of Systems Review Of Systems: Comprehensive ROS is negative, except as noted in HPI. ED EXAM, BEHAVIORAL HEALTH - Physical Exam Exam: See Below Exam Limited By: No Limitations General Appearance: Alert, WD/WN, No Apparent Distress Ears: Normal External Exam, Hearing Grossly Normal Nose: Normal Inspection Throat/Mouth: Normal Inspection, Normal Lips, Normal Voice, No Airway Compromise Head: Atraumatic Neck: Normal Inspection, Supple Respiratory/Chest: No Respiratory Distress, No Accessory Muscle Use Cardiovascular: Normal Peripheral Pulses, Regular Rate, Rhythm GI/Abdominal: No Distention (Male) Exam: Deferred Rectal (Males) Exam: Deferred Back Exam: Normal Inspection Extremities: Normal Inspection Neurological: Alert, Normal Mood/Affect, Normal Cognition, Normal Gait, Oriented x 3 Psychiatric: Alert, Normal Affect, Normal Cognition, Normal Mood, Oriented Skin Exam: Warm, Dry, Intact, Normal color, No rash COURSE, BEHAVIORAL HEALTH COMP - Course Vital Signs: Last Vital Signs Temp 98.5 F 07/07/21 12:10 Pulse 92 07/07/21 12:10 Resp 20 07/07/21 12:10 BP 148/104 H 07/07/21 12:10 Pulse Ox 99 07/07/21 12:10 Re-Assessment/Re-Exam: Discussed with the patient the fact that I will only give him 5 days of Xanax. Discussed at length the fact that he should be on a long-term anxiety medication such as Lexapro. As he eventually will not need the Xanax to treat his anxiety and it is more appropriate in the long run. Initially did not want to the Lexapro and wanted to speak with his primary care provider first however he did change his mind and requests to be started on that. He will be started on Lexapro 10 mg daily and have his primary care provider reevaluate the dosage when he sees him on the of this month. Departure - Departure Time of Disposition: 12:47 Disposition: Home, Self-Care 01 Condition: Good Clinical Impression: Anxiety - Discharge Information Prescriptions: Escitalopram [Lexapro] 10 mg PO DAILY #30 tab ALPRAZolam [Xanax] 1 mg PO TID PRN #15 tablet PRN Reason: Anxiety Referrals: PCP,Not In Area [Primary Care Provider] - Forms: ED Department Discharge Additional Instructions: You were seen in the emergency department today for evaluation of anxiety. Currently taking Xanax 3 times daily as needed for anxiety however long-term anxiety medication would be more appropriate for treatment. Start taking Lexapro 10 mg tablet daily. Keep in mind that it may take about a week and a half for you to start to notice the effects of the medication, and up to 6 weeks to see full effect. May have some nausea or headache noted the first week of taking the medication however after the first week the symptoms do resolve so please continue taking the medication as prescribed. You may need to follow-up with your primary care provider for an increase in dosage however this medication is a good medication to treat anxiety once taken consistently. Take Xanax 3 times daily as needed for anxiety however once the Lexapro starts to take effect you will no longer need the Xanax. Do not drink alcohol while taking either these medications as it can increase the sedative effect. Follow- up with your regular provider as scheduled for the of this month for reevaluation of your symptoms. Sepsis Event Note (ED) - Focused Exam Vital Signs: Vital Signs Temp Pulse Resp BP Pulse Ox 07/07/21 12:10 98.5 F 92 20 148/104 H 99
== END 2021-07-07 13:00 | disposition home or self-care (01) ==
LOC: JD.ED 11:42
DX: F41.9 Anxiety disorder, unspecified (principal); Z87.891 Personal history of nicotine dependence; Z79.899 Other long term (current) drug therapy
CPT/HCPCS: 99283

== ENCOUNTER 2021-07-10 17:47 | Emergency (ER) | payer MEDICAID ==
--- NOTE | 2021-07-10 18:23 | EDM.PDOCBH ---
ED HPI GENERAL MEDICAL PROBLEM - General Chief Complaint: Behavioral/Psych Stated Complaint: ANXIETY Time Seen by Provider: 07/10/21 17:58 Source of Information: Reports: Patient, RN Notes Reviewed History Limitations: Reports: No Limitations - History of Present Illness INITIAL COMMENTS - FREE TEXT/NARRATIVE: Patient is a 35-year-old male presenting to the emergency department with complaints of worsening of his anxiety. Reports that since Wednesday, he has been experiencing frequent panic attacks. He was seen in this emergency department on Wednesday and started on Lexapro and prescribed 15 tablets of Xanax 1 mg. He reports that he has one of the Xanax left as he has had to take it up to 4 times a day to help manage his symptoms. This is a medication that he has been taking long-term as needed, but states he does not normally have to use it daily. He cannot think of a trigger that would have caused worsening of his anxiety. He is under slightly more stress at work than normal. He is from [place] and had initially planned to stay active, however due to his worsening Yin he is currently scheduled to return home on of next week. He spoke with his doctor in [place] today about the Lexapro and he did recommend that he continue taking this. He denies any suicidal or homicidal thoughts. Headache Pain Score (Numeric/FACES): 7 - Related Data Allergies Allergy/AdvReac Type Severity Reaction Status Date / Time No Known Allergies Allergy Verified 07/10/21 18:01 Home Meds: Home Meds ALPRAZolam [Xanax] 1 mg PO TID PRN #15 tablet 07/07/21 [Rx] ALPRAZolam [Xanax] 1 mg PO TID PRN #15 tablet 07/10/21 [Rx] Past Medical History HEENT History: Reports: None Cardiovascular History: Reports: None Respiratory History: Reports: None Gastrointestinal History: Reports: None Genitourinary History: Reports: None Musculoskeletal History: Reports: Fracture Neurological History: Reports: Concussion Psychiatric History: Reports: Addiction, Anxiety Hematologic History: Reports: None Immunologic History: Reports: None Oncologic (Cancer) History: Reports: None Dermatologic History: Reports: None - Infectious Disease History Infectious Disease History: Reports: None - Past Surgical History Head Surgeries/Procedures: Reports: None HEENT Surgical History: Reports: None Cardiovascular Surgical History: Reports: Other (See Below) Other Cardiovascular Surgeries/Procedures: tricuspid valve repair in 2015 Respiratory Surgical History: Reports: None GI Surgical History: Reports: None Male Surgical History: Reports: None Endocrine Surgical History: Reports: None Neurological Surgical History: Reports: Laminectomy Musculoskeletal Surgical History: Reports: ORIF Other Musculoskeletal Surgeries/Procedures:: displaced left fibular fracture, left ankle surgery 03/27/2021 Oncologic Surgical History: Reports: None Social & Family History - Family History Family Medical History: No Pertinent Family History - Tobacco Use Tobacco Use Status *Q: Never Tobacco User - Caffeine Use Caffeine Use: Reports: Coffee, Soda, Tea - Recreational Drug Use Recreational Drug Use: No - Living Situation & Occupation Living situation: Reports: Single Occupation: Unemployed ED ROS GENERAL - Review of Systems Review Of Systems: Comprehensive ROS is negative, except as noted in HPI. ED EXAM, BEHAVIORAL HEALTH - Physical Exam Exam: See Below Exam Limited By: No Limitations General Appearance: Alert, WD/WN, No Apparent Distress Respiratory/Chest: No Respiratory Distress, Lungs Clear, Normal Breath Sounds, No Accessory Muscle Use, Chest Non-Tender Cardiovascular: Normal Peripheral Pulses, Regular Rate, Rhythm, No Edema, No Gallop, No JVD, No Murmur, No Rub Neurological: Alert, Normal Mood/Affect, CN II-XII Intact, Normal Cognition, Normal Gait, Normal Reflexes, No Motor/Sensory Deficits, Oriented x 3 Psychiatric: Alert, Normal Affect, Normal Cognition, Normal Mood, Oriented Skin Exam: Warm, Dry, Intact, Normal color, No rash COURSE, BEHAVIORAL HEALTH COMP - Course Vital Signs: Last Vital Signs Temp 98.5 F 07/10/21 17:59 Pulse 83 07/10/21 17:59 Resp 16 07/10/21 17:59 BP 165/111 H 07/10/21 17:59 Pulse Ox 97 07/10/21 17:59 Discharge vs Psych Eval/Treatment:: Patient is a 35-year-old male presenting to the emergency department with complaints of recurrent panic attacks since Wednesday of this week. Reports that jessica gibbons does have a history of anxiety but episodes usually resolve within a couple days. He was normally prescribed Xanax 1 mg 3 times daily by his primary care provider who was in [place]. He has been started on Lexapro which he has been taking for the last few days. He was seen in this emergency department 3 days ago and prescribed a short course of Xanax which she states does help. He has had to take it up to 4 times a day in order to help with his panic attacks. He is planning to return to [place] next so that he may follow-up with his doctor. Denies any homicidal or suicidal thoughts. We will send a short course of Xanax. Recommend only using it if necessary. He should continue Lexapro. Discharge instructions as documented. Departure - Departure Time of Disposition: 18:24 Disposition: Home, Self-Care 01 Condition: Good Clinical Impression: Anxiety - Discharge Information *PRESCRIPTION DRUG MONITORING PROGRAM REVIEWED*: Yes *COPY OF PRESCRIPTION DRUG MONITORING REPORT IN PATIENT RATNA: No Prescriptions: ALPRAZolam [Xanax] 1 mg PO TID PRN #15 tablet PRN Reason: Anxiety Instructions: Managing Anxiety, Adult Referrals: PCP,Not In Area [Primary Care Provider] - Forms: ED Department Discharge Additional Instructions: You were seen in the emergency department today for ongoing recurrent panic attacks since Wednesday. Prescription has been sent for Xanax 1 mg every 8 hours as needed for anxiety. Take this only as prescribed. Do not drink alcohol while taking this medication. Recommend that you continue your Lexapro. Follow-up with your doctor as planned when you get back home. Return to ER as needed. Sepsis Event Note (ED) - Evaluation Sepsis Screening Result: No Definite Risk - Focused Exam Vital Signs: Vital Signs Temp Pulse Resp BP Pulse Ox 07/10/21 17:59 98.5 F 83 16 165/111 H 97
== END 2021-07-10 18:46 | disposition home or self-care (01) ==
LOC: JD.ED 17:47
DX: F41.9 Anxiety disorder, unspecified (principal)
CPT/HCPCS: 99283

== ENCOUNTER 2021-07-15 14:49 | Emergency (ER) | payer MEDICAID ==
--- NOTE | 2021-07-15 16:54 | EDM.PDOC ---
ED HPI GENERAL MEDICAL PROBLEM - General Chief Complaint: General Stated Complaint: ANXIETY/NEEDS MEDS Time Seen by Provider: 07/15/21 16:45 Source of Information: Reports: Patient, RN Notes Reviewed History Limitations: Reports: No Limitations - History of Present Illness INITIAL COMMENTS - FREE TEXT/NARRATIVE: Patient is a 35-year-old male who presents to the ER for his anxiety. Patient has been seen in this ER on multiple occasions for needing his Xanax prescription refilled. Patient resides in [place]. He was recently seen by one of our midlevel's and started on Lexapro, and states that he has been taking this as directed. He notes however that when his anxiety flares, it seems to be quite severe for a good week to 2 weeks. States he has been using 1 tablet of Xanax 3 times a day for ongoing management. And subsequently ran out of the prescriptions he has had filled to this ER. He is in need of another prescription for Xanax, until he can make it back to [place] this week to be evaluated by his regular care provider. Patient denies any other sick-like symptoms, fever/chills, cough/shortness of breath, nausea/vomiting/diarrhea. - Related Data Allergies Allergy/AdvReac Type Severity Reaction Status Date / Time No Known Allergies Allergy Verified 07/15/21 15:55 Home Meds: Home Meds ALPRAZolam [Xanax] 1 mg PO TID PRN #15 tablet 07/07/21 [Rx] ALPRAZolam [Xanax] 1 mg PO TID PRN #15 tablet 07/10/21 [Rx] ALPRAZolam [Alprazolam] 1 mg PO TID #21 tablet 07/15/21 [Rx] Past Medical History HEENT History: Reports: None Cardiovascular History: Reports: None Respiratory History: Reports: None Gastrointestinal History: Reports: None Genitourinary History: Reports: None Musculoskeletal History: Reports: Fracture Neurological History: Reports: Concussion Psychiatric History: Reports: Addiction, Anxiety Hematologic History: Reports: None Immunologic History: Reports: None Oncologic (Cancer) History: Reports: None Dermatologic History: Reports: None - Infectious Disease History Infectious Disease History: Reports: None - Past Surgical History Head Surgeries/Procedures: Reports: None HEENT Surgical History: Reports: None Cardiovascular Surgical History: Reports: Other (See Below) Other Cardiovascular Surgeries/Procedures: tricuspid valve repair in 2014 Respiratory Surgical History: Reports: None GI Surgical History: Reports: None Male Surgical History: Reports: None Endocrine Surgical History: Reports: None Neurological Surgical History: Reports: Laminectomy Musculoskeletal Surgical History: Reports: ORIF Other Musculoskeletal Surgeries/Procedures:: displaced left fibular fracture, left ankle surgery 03/27/2021 Oncologic Surgical History: Reports: None Social & Family History - Family History Family Medical History: No Pertinent Family History - Caffeine Use Caffeine Use: Reports: Coffee, Soda, Tea - Living Situation & Occupation Living situation: Reports: Single Occupation: Unemployed ED ROS GENERAL - Review of Systems Review Of Systems: Comprehensive ROS is negative, except as noted in HPI. ED EXAM, GENERAL - Physical Exam Exam: See Below Exam Limited By: No Limitations General Appearance: Alert, WD/WN, No Apparent Distress, Anxious Respiratory/Chest: No Respiratory Distress, Lungs Clear, Normal Breath Sounds, No Accessory Muscle Use, Chest Non-Tender Cardiovascular: Normal Peripheral Pulses, Regular Rate, Rhythm, No Edema Extremities: Normal Inspection, Normal Capillary Refill Neurological: Alert, Oriented, Normal Cognition, No Motor/Sensory Deficits Psychiatric: Normal Affect, Normal Mood, Anxious Skin Exam: Warm, Dry, Intact, Normal Color, No Rash Course - Vital Signs Last Recorded V/S: Last Vital Signs Temp 98.7 F 07/15/21 15:47 Pulse 80 07/15/21 15:47 Resp 20 07/15/21 15:47 BP 131/96 H 07/15/21 15:47 Pulse Ox 96 07/15/21 15:47 - Re-Assessments/Exams Free Text/Narrative Re-Assessment/Exam: 07/15/21 17:07 Patient presents to the ER for his anxiety. I did make it aware to the patient, that an ER is not appropriate to be having his medications refilled. Nonetheless I do believe that he is experiencing anxiety, and the Lexapro is taking a little bit of time to kick in so we will go ahead and refill this prescription, give him enough for 1 week until he can leave the area on Wednesday hopefully to go back to his provider in [place] for ongoing management. Patient verbalized understanding. Departure - Departure Time of Disposition: 16:53 Disposition: Home, Self-Care 01 Condition: Good Clinical Impression: Encounter for medication refill, Anxiety - Discharge Information *PRESCRIPTION DRUG MONITORING PROGRAM REVIEWED*: Yes *COPY OF PRESCRIPTION DRUG MONITORING REPORT IN PATIENT RATNA: No Prescriptions: ALPRAZolam [Alprazolam] 1 mg PO TID #21 tablet Instructions: Managing Anxiety, Adult Referrals: PCP,None [Primary Care Provider] - Forms: ED Department Discharge Additional Instructions: You were evaluated in the ER today due to needing your medications refilled. Keep taking all other medications as previously prescribed. You were given a prescription for Xanax, 1 mg tablets 3 times a day as needed for ongoing anxiety management. This was electronically prescribed to the [facility] pharmacy located near [facility]. Recommend you follow-up with your primary care provider, when you return to [place] this coming week. Sepsis Event Note (ED) - Focused Exam Vital Signs: Vital Signs Temp Pulse Resp BP Pulse Ox 07/15/21 15:47 98.7 F 80 20 131/96 H 96
== END 2021-07-15 17:10 | disposition home or self-care (01) ==
LOC: JD.ED 14:49
DX: F41.9 Anxiety disorder, unspecified (principal); Z76.0 Encounter for issue of repeat prescription
CPT/HCPCS: 99283

== ENCOUNTER 2021-07-27 10:34 | Emergency (ER) | payer MEDICAID ==
--- NOTE | 2021-07-27 11:55 | EDM.PDOCBH ---
ED HPI GENERAL MEDICAL PROBLEM - General Chief Complaint: Behavioral/Psych Stated Complaint: ANXIETY Time Seen by Provider: 07/27/21 10:49 Source of Information: Reports: Patient History Limitations: Reports: No Limitations - History of Present Illness INITIAL COMMENTS - FREE TEXT/NARRATIVE: The patient presents for anxiety. He has a history of anxiety and he is normally on alprazolam 1mg TID as needed for anxiety. He ran out. This morning he woke up feeling anxious. He is worried he may need more meds. He has no other symptoms such as fever, chills, cough, chest pain, shortness of breath, abdominal pain, nausea or vomiting. Onset: Gradual Duration: Hour(s): Severity: Moderate Improves with: Reports: None Worsens with: Reports: None Associated Symptoms: Reports: No Other Symptoms - Related Data Allergies Allergy/AdvReac Type Severity Reaction Status Date / Time No Known Allergies Allergy Verified 07/15/21 15:55 Home Meds: Home Meds ALPRAZolam [Alprazolam] 1 mg PO TID #21 tablet 07/15/21 [Rx] ALPRAZolam [Alprazolam] 1 mg PO TID PRN #20 tablet 07/27/21 [Rx] Past Medical History HEENT History: Reports: None Cardiovascular History: Reports: None Respiratory History: Reports: None Gastrointestinal History: Reports: None Genitourinary History: Reports: None Musculoskeletal History: Reports: Fracture Neurological History: Reports: Concussion Psychiatric History: Reports: Addiction, Anxiety Hematologic History: Reports: None Immunologic History: Reports: None Oncologic (Cancer) History: Reports: None Dermatologic History: Reports: None - Infectious Disease History Infectious Disease History: Reports: None - Past Surgical History Head Surgeries/Procedures: Reports: None HEENT Surgical History: Reports: None Cardiovascular Surgical History: Reports: Other (See Below) Other Cardiovascular Surgeries/Procedures: tricuspid valve repair in 2014 Respiratory Surgical History: Reports: None GI Surgical History: Reports: None Male Surgical History: Reports: None Endocrine Surgical History: Reports: None Neurological Surgical History: Reports: Laminectomy Musculoskeletal Surgical History: Reports: ORIF Other Musculoskeletal Surgeries/Procedures:: displaced left fibular fracture, left ankle surgery 03/27/2021 Oncologic Surgical History: Reports: None Social & Family History - Family History Family Medical History: No Pertinent Family History - Caffeine Use Caffeine Use: Reports: Coffee, Soda, Tea - Living Situation & Occupation Living situation: Reports: Single Occupation: Unemployed ED ROS GENERAL - Review of Systems Review Of Systems: See Below Constitutional: Reports: No Symptoms HEENT: Reports: No Symptoms Respiratory: Reports: No Symptoms Cardiovascular: Reports: No Symptoms Endocrine: Reports: No Symptoms GI/Abdominal: Reports: No Symptoms : Reports: No Symptoms Musculoskeletal: Reports: No Symptoms Skin: Reports: No Symptoms Psychiatric: Reports: Anxiety ED EXAM, BEHAVIORAL HEALTH - Physical Exam Exam: See Below Exam Limited By: No Limitations General Appearance: Alert, No Apparent Distress Ears: Normal External Exam Nose: Normal Inspection Head: Atraumatic, Normocephalic Neck: Normal Inspection Respiratory/Chest: No Respiratory Distress, Lungs Clear, Normal Breath Sounds Cardiovascular: Regular Rate, Rhythm, No Edema, No Murmur GI/Abdominal: Soft, Non-Tender, No Organomegaly, No Mass COURSE, BEHAVIORAL HEALTH COMP - Course Vital Signs: Last Vital Signs Temp 97.9 F 07/27/21 10:47 Pulse 103 H 07/27/21 10:47 Resp 20 07/27/21 10:47 BP 143/94 H 07/27/21 10:47 Pulse Ox 97 07/27/21 10:47 Departure - Departure Time of Disposition: 11:55 Disposition: Home, Self-Care 01 Condition: Good Clinical Impression: Anxiety - Discharge Information *PRESCRIPTION DRUG MONITORING PROGRAM REVIEWED*: Not Applicable *COPY OF PRESCRIPTION DRUG MONITORING REPORT IN PATIENT RATNA: Not Applicable Prescriptions: ALPRAZolam [Alprazolam] 1 mg PO TID PRN #20 tablet PRN Reason: Anxiety Referrals: PCP,None [Primary Care Provider] - Additional Instructions: Take your medications as prescribed. Follow up with your provider. Please return if you are worse. Sepsis Event Note (ED) - Focused Exam Vital Signs: Vital Signs Temp Pulse Resp BP Pulse Ox 07/27/21 10:47 97.9 F 103 H 20 143/94 H 97
== END 2021-07-27 11:50 | disposition home or self-care (01) ==
LOC: JD.ED 10:34
DX: F41.9 Anxiety disorder, unspecified (principal)
CPT/HCPCS: 99283

== ENCOUNTER 2021-07-28 13:45 | Emergency (ER) | payer MEDICAID ==
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
== END 2021-07-28 17:01 | disposition home or self-care (01) ==
LOC: JD.ED 13:45
DX: F41.9 Anxiety disorder, unspecified (principal); Z76.0 Encounter for issue of repeat prescription; Z87.891 Personal history of nicotine dependence
CPT/HCPCS: 99281

== ENCOUNTER 2021-08-01 12:14 | Emergency (ER) | payer MEDICAID | END 2021-08-01 13:35 | disposition left against medical advice (07) | LOC: JD.ED 12:14 | DX: Z53.21 Procedure and treatment not carried out due to patient leaving prior to being seen by health care provider (principal) ==

== ENCOUNTER 2021-08-10 11:43 | Emergency (ER) | payer MEDICAID ==
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
== END 2021-08-10 14:01 | disposition home or self-care (01) ==
LOC: JD.ED 11:43
DX: F41.9 Anxiety disorder, unspecified (principal); Z76.0 Encounter for issue of repeat prescription; Z76.5 Malingerer [conscious simulation]
CPT/HCPCS: 99281

== ENCOUNTER 2022-05-08 17:59 | Emergency (ER) | payer BC, MEDICAID ==
[2022-05-08 19:53] LABS: CORONAVIRUS COVID-19 NAA NEGATIVE (NEGATIVE)
[2022-05-08] MEDS ORDERED: Albuterol 0.083% 2.5 MG/3 ML Neb Soln NEB ONE (21:16)
[2022-05-08 22:13] LABS: ESTIMATED GFR 89 mL/min (>60)
== END 2022-05-08 23:14 | disposition home or self-care (01) ==
LOC: JD.ED 17:59
DX: J40 Bronchitis, not specified as acute or chronic (principal); F17.210 Nicotine dependence, cigarettes, uncomplicated; Z79.899 Other long term (current) drug therapy; Z20.822 Contact with and (suspected) exposure to COVID-19
CPT/HCPCS: 0240U; 36415; 71046; 80053; 83735; 85025; 86140; 94640; 99284

== ENCOUNTER 2022-08-24 00:21 | Emergency (ER) | payer BC ==
[2022-08-24] MEDS ORDERED: Ketorolac 60 MG/2 ML SDV IM ONE (00:50)
== END 2022-08-24 02:24 | disposition home or self-care (01) ==
LOC: JD.ED 00:21
DX: S20.212A Contusion of left front wall of thorax, initial encounter (principal); F17.210 Nicotine dependence, cigarettes, uncomplicated; Z76.5 Malingerer [conscious simulation]; W01.0XXA Fall on same level from slipping, tripping and stumbling without subsequent striking against object, initial encounter
CPT/HCPCS: 71046; 96372; 99283; J1885

== ENCOUNTER 2022-08-25 16:57 | Emergency (ER) | payer BC ==
[2022-08-25] MEDS ORDERED: HYDROmorphone 1 MG/ML Syringe IM ONE (18:19)
== END 2022-08-25 19:15 | disposition home or self-care (01) ==
LOC: JD.ED 16:57
DX: S20.222A Contusion of left back wall of thorax, initial encounter (principal); F17.210 Nicotine dependence, cigarettes, uncomplicated; Z79.899 Other long term (current) drug therapy; W01.198A Fall on same level from slipping, tripping and stumbling with subsequent striking against other object, initial encounter
CPT/HCPCS: 96372; 99283; J1170

== ENCOUNTER 2023-02-09 01:25 | Emergency (ER) | payer BC ==
[2023-02-09 02:55] LABS: CORONAVIRUS COVID-19 NAA NEGATIVE (NEGATIVE)
== END 2023-02-09 03:25 | disposition home or self-care (01) ==
LOC: JD.ED 01:25
DX: J40 Bronchitis, not specified as acute or chronic (principal); Z20.822 Contact with and (suspected) exposure to COVID-19
CPT/HCPCS: 0240U; 71046; 99283

== ENCOUNTER 2023-05-25 20:55 | Emergency (ER) | payer BC ==
[2023-05-25] MEDS ORDERED: Cephalexin 500 MG Cap PO ONE (23:25)
[2023-05-26] MEDS ORDERED: Cephalexin 500 MG Cap PO ONE (00:30)
== END 2023-05-26 00:22 | disposition home or self-care (01) ==
LOC: JD.ED 20:55
DX: S80.219A Abrasion, unspecified knee, initial encounter (principal); S90.819A Abrasion, unspecified foot, initial encounter; S50.319A Abrasion of unspecified elbow, initial encounter; L08.9 Local infection of the skin and subcutaneous tissue, unspecified; W05.1XXA Fall from non-moving nonmotorized scooter, initial encounter
CPT/HCPCS: 99283; A9270; 99282

== ENCOUNTER 2023-08-12 13:24 | Emergency (ER) | payer BC ==
[2023-08-12] MEDS ORDERED: Sodium Chloride 0.9% 10 ML Syringe FLUSH PRN (14:19)
[2023-08-12] MEDS ORDERED: LORazepam 2 MG/ML SDV IVPUSH ONE ×3 (14:20→16:38)
[2023-08-12] MEDS ORDERED: Diltiazem 25 MG/5 ML SDV IVPUSH ONE (14:20)
[2023-08-12] MEDS ORDERED: Diltiazem 125 MG in Sodium Chloride 0.9% 100 ML IV SCH (14:30)
[2023-08-12] MEDS ORDERED: Sodium Chloride 0.9% 1,000 ML IV SCH (14:30)
[2023-08-12 15:13] LABS: BASOPHILS ABSOLUTE AUTO 0.1 K/mm3 (0.0-0.2); BASOPHILS PERCENT AUTO 0.4 % (0.0-1.0); EOSINOPHILS ABSOLUTE AUTO 0.1 K/mm3 (0.0-0.4); EOSINOPHILS PERCENT AUTO 0.4 % (0.0-6.0); HEMATOCRIT 46.7 % (42.0-52.0); HEMOGLOBIN 15.5 gm/dl (14.0-18.0); IMMATURE GRAN ABSOLUTE AUTO 0.06 K/mm3 (0.00-0.05); IMMATURE GRAN PERCENT AUTO 0.4 % (0.0-0.4); LYMPHOCYTES ABSOLUTE AUTO 1.3 K/mm3 (1.0-4.8); LYMPHOCYTES PERCENT AUTO 8.3 % (24.0-44.0); MEAN CORPUSCULAR HEMOGLOBIN 34.1 pg (28.0-32.0); MEAN CORPUSCULAR HGB CONC 33.2 g/dl (32.0-36.0); MEAN CORPUSCULAR VOLUME 102.9 fl (83.0-99.0); MEAN PLATELET VOLUME 9.7 fl (9.4-12.4); MONOCYTES ABSOLUTE AUTO 0.9 K/mm3 (0.0-0.8); MONOCYTES PERCENT AUTO 5.4 % (0.0-8.0); NEUTROPHILS ABSOLUTE AUTO 13.5 K/mm3 (1.8-7.7); NEUTROPHILS PERCENT AUTO 85.1 % (41.0-71.0); PLATELET COUNT,PLT 317 K/mm3 (150-400); RED BLOOD CELL COUNT 4.54 M/mm3 (4.52-5.90); WHITE BLOOD CELL COUNT,WBC 15.84 K/mm3 (3.9-11.3)
[2023-08-12 15:48] LABS: A/G RATIO 0.9 (1-2); ALBUMIN 3.5 g/dl (3.4-5.0); ANION GAP 14.8 (5-15); BILIRUBIN TOTAL 0.6 mg/dL (0.2-1.0); EST CRCL DRUG DOSING (CG) 102.4 mL/min; MAGNESIUM 1.9 mg/dL (1.8-2.4); POTASSIUM,K 4.8 mEq/L (3.5-5.1); PROTEIN TOTAL,TP 7.3 g/dl (6.4-8.2); TSH 0.304 uIU/mL (0.358-3.74)
[2023-08-12 15:58] LABS: CALCIUM 8.7 mg/dL (8.5-10.1)
== END 2023-08-12 18:13 | disposition home or self-care (01) ==
LOC: JD.ED 13:24
DX: I48.3 Typical atrial flutter (principal); Z79.899 Other long term (current) drug therapy; F17.210 Nicotine dependence, cigarettes, uncomplicated
CPT/HCPCS: 36415; 71045; 80053; 83735; 84443; 84484; 85025; 93005; 96361; 96374; 96375; 96376; 99285; J2060; J3490; J7030

== ENCOUNTER 2023-08-22 17:15 | Emergency (ER) | payer BC ==
[2023-08-22] MEDS ORDERED: Sodium Chloride 0.9% 10 ML Syringe FLUSH PRN (17:44)
[2023-08-22] MEDS ORDERED: Metoprolol Tartrate 5 MG in Sodium Chloride 0.9% 50 ML IV ONE (17:51)
[2023-08-22 18:11] LABS: BASOPHILS ABSOLUTE AUTO 0.1 K/mm3 (0.0-0.2); BASOPHILS PERCENT AUTO 0.5 % (0.0-1.0); EOSINOPHILS ABSOLUTE AUTO 0.1 K/mm3 (0.0-0.4); EOSINOPHILS PERCENT AUTO 0.9 % (0.0-6.0); HEMATOCRIT 40.7 % (42.0-52.0); HEMOGLOBIN 13.6 gm/dl (14.0-18.0); IMMATURE GRAN ABSOLUTE AUTO 0.06 K/mm3 (0.00-0.05); IMMATURE GRAN PERCENT AUTO 0.4 % (0.0-0.4); LYMPHOCYTES ABSOLUTE AUTO 1.8 K/mm3 (1.0-4.8); LYMPHOCYTES PERCENT AUTO 10.9 % (24.0-44.0); MEAN CORPUSCULAR HEMOGLOBIN 34.4 pg (28.0-32.0); MEAN CORPUSCULAR HGB CONC 33.4 g/dl (32.0-36.0); MEAN PLATELET VOLUME 9.1 fl (9.4-12.4); MONOCYTES ABSOLUTE AUTO 2.1 K/mm3 (0.0-0.8); MONOCYTES PERCENT AUTO 12.7 % (0.0-8.0); NEUTROPHILS ABSOLUTE AUTO 12.2 K/mm3 (1.8-7.7); NEUTROPHILS PERCENT AUTO 74.6 % (41.0-71.0); PLATELET COUNT,PLT 260 K/mm3 (150-400); RED BLOOD CELL COUNT 3.95 M/mm3 (4.52-5.90); WHITE BLOOD CELL COUNT,WBC 16.35 K/mm3 (3.9-11.3)
[2023-08-22] MEDS ORDERED: Metoprolol Tartrate 5 MG/5 ML SDV IVPUSH ONE (18:15)
[2023-08-22] MEDS ORDERED: Diltiazem 25 MG/5 ML SDV IVPUSH ONE ×2 (18:31→20:26)
[2023-08-22 18:33] LABS: A/G RATIO 0.8 (1-2); ANION GAP 15.3 (5-15); BILIRUBIN TOTAL 1.5 mg/dL (0.2-1.0); BUN/CREATININE RATIO 9.1 (14-18); CALCIUM 8.6 mg/dL (8.5-10.1); CREATININE 1.1 mg/dL (0.7-1.3); EST CRCL DRUG DOSING (CG) 93.09 mL/min; POTASSIUM,K 4.3 mEq/L (3.5-5.1); PROTEIN TOTAL,TP 6.6 g/dl (6.4-8.2)
[2023-08-22] MEDS ORDERED: LORazepam 2 MG/ML SDV IVPUSH ONE (18:41)
[2023-08-22 18:59] LABS: SLIDE REVIEW ABNORMAL SMEAR
[2023-08-22] MEDS ORDERED: Iopamidol 755 Mg/ML 100 ML Bottle IVPUSH ONE (19:01)
[2023-08-22] MEDS ORDERED: Sodium Chloride 0.9% 100 ML IV SCH (19:15)
[2023-08-22] MEDS ORDERED: cefTRIAXone 1 GM in Sodium Chloride 0.9% 100 ML IV ONE (19:51)
[2023-08-22 20:13] LABS: BARBITURATE SCREEN,URINE NEGATIVE (CUTOFF=200); BENZODIAZEPINES SCREEN,URINE PRESUMPTIVE POSITIVE (CUTOFF=150); BUPRENORPHINE SCREEN,URINE PRESUMPTIVE POSITIVE (CUTOFF=10); METHADONE SCREEN, URINE NEGATIVE (CUT0FF=200); METHAMPHETAMINES SCREEN, URINE NEGATIVE (CUTOFF=500); OXYCODONE SCREEN,URINE NEGATIVE (CUT0FF=100); PROPOXYPHENE SCREEN,URINE NEGATIVE (CUTOFF=300); THC SCREEN,URINE 20 NG/ML NEGATIVE (CUTOFF=50)
[2023-08-22 20:14] LABS: AMPHETAMINES SCREEN, URINE NEGATIVE (CUTOFF=500)
[2023-08-22] MEDS ORDERED: Diltiazem 180 MG Cap.CD PO ONE (20:25)
== END 2023-08-22 22:07 | disposition home or self-care (01) ==
LOC: JD.ED 17:15
DX: R07.89 Other chest pain (principal); R00.0 Tachycardia, unspecified; F17.210 Nicotine dependence, cigarettes, uncomplicated; Z79.899 Other long term (current) drug therapy; Z86.711 Personal history of pulmonary embolism; J98.4 Other disorders of lung
CPT/HCPCS: 36415; 71045; 71275; 80053; 80306; 80307; 83735; 84484; 85025; 85379; 96365; 96375; 96376; 99285; A9270; J0696; J2060; J3490; Q9967; 93010; 99284

== ENCOUNTER 2023-08-29 00:33 | Emergency (ER) | payer BC ==
[2023-08-29] MEDS ORDERED: hydrOXYzine HCl 25 MG Tab PO ONE (01:46)
== END 2023-08-29 02:01 ==
LOC: JD.ED 00:33
DX: F10.129 Alcohol abuse with intoxication, unspecified (principal); F17.210 Nicotine dependence, cigarettes, uncomplicated
CPT/HCPCS: 99283; A9270

== ENCOUNTER 2024-01-18 06:09 | Emergency (ER) | payer BC, OTHER ==
[2024-01-18] MEDS: LORazepam 1 MG Tab PO ONE ×2 (06:26→07:41)
[2024-01-18 06:29] LABS: BASOPHILS ABSOLUTE AUTO 0.1 K/mm3 (0.0-0.2); EOSINOPHILS ABSOLUTE AUTO 0.1 K/mm3 (0.0-0.4); HEMATOCRIT 46.4 % (42.0-52.0); HEMOGLOBIN 16.2 gm/dl (14.0-18.0); IMMATURE GRAN ABSOLUTE AUTO 0.04 K/mm3 (0.00-0.05); IMMATURE GRAN PERCENT AUTO 0.3 % (0.0-0.4); LYMPHOCYTES ABSOLUTE AUTO 1.9 K/mm3 (1.0-4.8); LYMPHOCYTES PERCENT AUTO 16.8 % (24.0-44.0); MEAN CORPUSCULAR HEMOGLOBIN 36.5 pg (28.0-32.0); MEAN CORPUSCULAR HGB CONC 34.9 g/dl (32.0-36.0); MEAN CORPUSCULAR VOLUME 104.5 fl (83.0-99.0); MEAN PLATELET VOLUME 9.7 fl (9.4-12.4); MONOCYTES ABSOLUTE AUTO 0.8 K/mm3 (0.0-0.8); MONOCYTES PERCENT AUTO 7.3 % (0.0-8.0); NEUTROPHILS ABSOLUTE AUTO 8.5 K/mm3 (1.8-7.7); NEUTROPHILS PERCENT AUTO 73.6 % (41.0-71.0); PLATELET COUNT,PLT 261 K/mm3 (150-400); RED BLOOD CELL COUNT 4.44 M/mm3 (4.52-5.90); WHITE BLOOD CELL COUNT,WBC 11.55 K/mm3 (3.9-11.3)
[2024-01-18 06:59] LABS: ALBUMIN 4.2 g/dl (3.4-5.0); ANION GAP 19.2 (5-15); BUN/CREATININE RATIO 10.8 (14-18); CALCIUM 9.4 mg/dL (8.5-10.1); CREATININE 1.3 mg/dL (0.7-1.3); EST CRCL DRUG DOSING (CG) 78.77 mL/min; PROTEIN TOTAL,TP 8.6 g/dl (6.4-8.2)
[2024-01-18 07:03] LABS: POTASSIUM,K 4.2 mEq/L (3.5-5.1)
[2024-01-18] MEDS: Nicotine 21 MG/24 Hr Patch TRDERM ONE (07:40)
== END 2024-01-18 07:35 ==
LOC: JD.ED 06:09
DX: R07.89 Other chest pain (principal); F13.930 Sedative, hypnotic or anxiolytic use, unspecified with withdrawal, uncomplicated; F17.213 Nicotine dependence, cigarettes, with withdrawal; Z79.899 Other long term (current) drug therapy
CPT/HCPCS: 36415; 71045; 80053; 84484; 85025; 99285; A9270; 99284

== ENCOUNTER 2025-01-14 16:39 | Emergency (ER) | payer BC ==
[2025-01-14 17:43] LABS: BASOPHILS ABSOLUTE AUTO 0.1 K/mm3 (0.0-0.2); BASOPHILS PERCENT AUTO 0.6 % (0.0-1.0); EOSINOPHILS ABSOLUTE AUTO 0.6 K/mm3 (0.0-0.4); EOSINOPHILS PERCENT AUTO 6.6 % (0.0-6.0); HEMATOCRIT 40.5 % (42.0-52.0); IMMATURE GRAN ABSOLUTE AUTO 0.02 K/mm3 (0.00-0.05); IMMATURE GRAN PERCENT AUTO 0.2 % (0.0-0.4); LYMPHOCYTES ABSOLUTE AUTO 2.6 K/mm3 (1.0-4.8); LYMPHOCYTES PERCENT AUTO 27.5 % (24.0-44.0); MEAN CORPUSCULAR HEMOGLOBIN 31.1 pg (28.0-32.0); MEAN CORPUSCULAR HGB CONC 33.6 g/dl (32.0-36.0); MEAN PLATELET VOLUME 9.7 fl (9.4-12.4); MONOCYTES ABSOLUTE AUTO 0.7 K/mm3 (0.0-0.8); MONOCYTES PERCENT AUTO 7.9 % (0.0-8.0); NEUTROPHILS ABSOLUTE AUTO 5.3 K/mm3 (1.8-7.7); NEUTROPHILS PERCENT AUTO 57.2 % (41.0-71.0); PLATELET COUNT,PLT 269 K/mm3 (150-400); RED BLOOD CELL COUNT 4.38 M/mm3 (4.52-5.90); WHITE BLOOD CELL COUNT,WBC 9.26 K/mm3 (3.9-11.3)
[2025-01-14] MEDS: ALPRAZolam 1 MG Tab PO ONE (17:45)
[2025-01-14 17:49] LABS: HEMOGLOBIN 13.6 gm/dl (14.0-18.0)
[2025-01-14 17:50] LABS: MEAN CORPUSCULAR VOLUME 92.5 fl (83.0-99.0)
[2025-01-14 18:05] LABS: INR 1.02; PROTHROMBIN TIME 10.8 SECONDS (9.7-12.0)
[2025-01-14 18:06] LABS: ALANINE AMINOTRANSFERASE,ALT 27 U/L (16-63); ALBUMIN 3.5 g/dl (3.4-5.0); ALKALINE PHOSPHATASE 80 U/L (46-116); ANION GAP 9.5 (5-15); ASPARTATE AMNIOTRANSFERASE,AST 17 U/L (15-37); BILIRUBIN TOTAL 0.3 mg/dL (0.2-1.0); BLOOD UREA NITROGEN,BUN 11 mg/dL (7-18); CALCIUM 9.1 mg/dL (8.5-10.1); CARBON DIOXIDE,CO2 30 mEq/L (21-32); CHLORIDE,CL 102 mEq/L (98-107); ESTIMATED GFR 98 mL/min (>60); GLUCOSE RANDOM 91 mg/dL (70-99); POTASSIUM,K 4.5 mEq/L (3.5-5.1); PROTEIN TOTAL,TP 7.2 g/dl (6.4-8.2); SODIUM,NA 137 mEq/L (136-145)
== END 2025-01-14 18:30 | disposition home or self-care (01) ==
LOC: JD.ED 16:39
DX: K62.5 Hemorrhage of anus and rectum (principal); Z79.899 Other long term (current) drug therapy
CPT/HCPCS: 36415; 80053; 85025; 85610; 99283; A9270

== ENCOUNTER 2025-02-27 09:19 | Day surgery (SDC) | payer BC ==
[~2025-02-27 09:19] MED LIST changes: -Lactated Ringers 1,000 ML IV SCH; -Lidocaine 1%/Sod Bicarbonate in NS 8.4% 1 ML Syringe IDERM PRN; -Midazolam 1 MG/ML 2 ML SDV ONE; -Propofol 200 MG/20 ML SDV ONE; +Sodium Chloride 0.9% 10 ML Syringe FLUSH SCH; -fentaNYL 250 MCG/5 ML SDV ONE
[2025-02-27] MEDS: Lactated Ringers 1,000 ML IV SCH (09:40)
[2025-02-27] MEDS ORDERED: Midazolam 1 MG/ML 2 ML SDV ONE (10:15)
[2025-02-27] MEDS ORDERED: Propofol 200 MG/20 ML SDV ONE ×2 (10:23)
== END 2025-02-27 11:25 | disposition home or self-care (01) ==
LOC: JD.SDS 09:19
PROVIDERS: ATTEND Surgery
DX: K62.5 Hemorrhage of anus and rectum (principal); I50.9 Heart failure, unspecified; F41.9 Anxiety disorder, unspecified; I48.92 Unspecified atrial flutter; Z79.01 Long term (current) use of anticoagulants; Z79.899 Other long term (current) drug therapy
CPT/HCPCS: 45378; J2250; J2704; J7120; 00812

== ENCOUNTER 2025-09-06 14:55 | Emergency (ER) | payer BC ==
[2025-09-06] MEDS ORDERED: Sodium Chloride 0.9% 10 ML Syringe FLUSH PRN (15:07)
[2025-09-06 15:28] LABS: BASOPHILS ABSOLUTE AUTO 0.1 K/mm3 (0.0-0.2); BASOPHILS PERCENT AUTO 0.8 % (0.0-1.0); EOSINOPHILS ABSOLUTE AUTO 0.4 K/mm3 (0.0-0.4); EOSINOPHILS PERCENT AUTO 4.5 % (0.0-6.0); IMMATURE GRAN ABSOLUTE AUTO 0.03 K/mm3 (0.00-0.05); IMMATURE GRAN PERCENT AUTO 0.3 % (0.0-0.4); LYMPHOCYTES ABSOLUTE AUTO 1.7 K/mm3 (1.0-4.8); LYMPHOCYTES PERCENT AUTO 19.7 % (24.0-44.0); MEAN PLATELET VOLUME 9.6 fl (9.4-12.4); MONOCYTES ABSOLUTE AUTO 0.6 K/mm3 (0.0-0.8); MONOCYTES PERCENT AUTO 6.2 % (0.0-8.0); NEUTROPHILS ABSOLUTE AUTO 6.0 K/mm3 (1.8-7.7); NEUTROPHILS PERCENT AUTO 68.5 % (41.0-71.0); NRBC ABSOLUTE 0.00 (0.00-0.02); NRBC PERCENT 0.0 % (0.0-0.2); PLATELET COUNT,PLT 220 K/mm3 (150-400); RED BLOOD CELL COUNT 4.70 M/mm3 (4.52-5.90); WHITE BLOOD CELL COUNT,WBC 8.82 K/mm3 (3.9-11.3)
[2025-09-06 16:10] LABS: A/G RATIO 0.9 (1-2); ALANINE AMINOTRANSFERASE,ALT 51.0 U/L (16-63); ASPARTATE AMNIOTRANSFERASE,AST 37.0 U/L (15-37); BILIRUBIN TOTAL 0.6 mg/dL (0.2-1.0); BLOOD UREA NITROGEN,BUN 12.0 mg/dL (7-18); CARBON DIOXIDE,CO2 30.0 mEq/L (21-32); CHLORIDE,CL 102.0 mEq/L (98-107); CREATININE 1.3 mg/dL (0.7-1.3); EST CRCL DRUG DOSING (CG) 77.21 mL/min; ESTIMATED GFR 71.0 mL/min (>60); GLUCOSE RANDOM 129.0 mg/dL (70-99); POTASSIUM,K 4.3 mEq/L (3.5-5.1); PROTEIN TOTAL,TP 7.7 g/dl (6.4-8.2); SODIUM,NA 142.0 mEq/L (136-145); TROPONIN I HIGH SENSITIVITY 5.0 pg/mL (<=76)
[2025-09-06 16:37] LABS: TSH 0.92 uIU/mL (0.358-3.74)
== END 2025-09-06 17:33 | disposition home or self-care (01) ==
LOC: JD.ED 14:55
DX: I50.9 Heart failure, unspecified (principal); I42.9 Cardiomyopathy, unspecified; I48.91 Unspecified atrial fibrillation; Z79.899 Other long term (current) drug therapy; Z79.01 Long term (current) use of anticoagulants
CPT/HCPCS: 36415; 71046; 80053; 83880; 84443; 84484; 85025; 85379; 86140; 93005; 99285; A9270